=== PATIENT | male | born 1975 | race Hispanic/Latino ===

== ENCOUNTER 2023-04-16 19:53 | Emergency (ER) | payer BC ==
--- OUTSIDE RECORDS SUMMARY | 2023-04-16 19:58 | XMS REPORT | Continuity of Care Document ---
:1975 Author Organization [facility] t Address [address] [place] [address] [place] [id number] Care Team Providers Name Role Phone PCP, PATIENT DOES NOT HAVE A Primary Care Physician UnavailSherman Jefferson Attending Clinician Unavailable Dori Arciniega MD Attending Clinician Moses Wilson Attending Clinician Unavailable Brock Baker Attending Clinician Unavailable Kindra Rico Attending Clinician Unavailable DOMINIC PATIÑO Attending Clinician Unavailable Eliazar Bolaños MD Attending Clinician Moses Wilson Admitting Clinician Unavailable Payers Payer Name Policy Type Policy Number Effective Date Expiration Date S [facility] - [id number] 2018 00:00:00 OUT OF STATE Problems Condition Condition Condition Status Onset Resolution Last Treating Co mments Source Name Details Category Date Date Treatment Clinician Date Iron Iron Disease Active Overview: Univer s deficiency deficiency 3-03 Iron 32 i ty of 00:00: 06/11/2016 [place] [id number] Medical Branch Injury, Injury, Disease Active 2013- Univers other and other and 0-14 ity of unspecifie unspecifie 00:00: Jarett leos d, 00 Medical unspecifie unspecifie Br anch d site d site Closed Closed Disease Active 2013-06 Overview: Univer s fracture fracture 0-14 ICD10 ity of of of 00:00: Diagnosis [place] cervical cervical 00 Term Medica l vertebra vertebra 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 Injury at Injury at Disease Active 2013-06 Uni vers C5 level C5 level 0-14 ity of of of 00:00: [place] cervical cervical 00 Medica l spinal spinal Branch cord cord C6 C6 Disease Active 2013-06 Univers cervical cervical 0-14 [place]y of fracture, fracture, 00:[place] closed[place], 00 Medical initial initial Branch encounter encounter Nasal Nasal Disease Active 2013-06 Univers fracture, fracture, 0-14 ity of closed, closed, 00:00: [place] initial initial 00 Medical encounter encounter Bran ch Suicidal Suicidal Disease Active 2013-06 Unive rs ideation ideation 0-14 ity of 00:00: [place] 00 Medical Branch S/P S/P Disease Active 2013-06 Univers gastric gastric 0-14 ity of bypass bypass 00:00: [place] 00 Medical Branch Tobacco Tobacco Disease Active Univers use use 6-16 ity of disorder disorder 00:00: [place] 00 Medical Branch Alcohol Alcohol Disease Active Univers use use 1-06 ity of 00:00: [place] 00 Medical Branch Status Status Disease Active Univers post post 1-18 ity of gastric gastric 00:00: [place] bypass for bypass for 00 Me dical obesity obesity Branch Metabolic Metabolic Disease Active 2010-06 Uni vers syndrome syndrome 2-15 ity of 00:00: [place] 00 Medical Branch Morbid Morbid Disease Active Univers obesity obesity ity of [facility] Other Other Disease Active Univers chronic chronic ity of nonalcohol nonalcohol [place] ic liver ic liver Medica l disease disease Branch Allergies, Adverse Reactions, Alerts Allergy Allergy Status Severity Reaction(s) Onset Inactive Treating Comm ents Source Name Type Date Date Clinician No Known DA Active U 2012-06 [facility] Allergie 1-06 Clear s 00:00: [address] NO KNOWN Drug Active Univers ALLERGIE Class ity of S [facility] Social History Social Habit Start Date Stop Date Quantity Comments Source History of tobacco Cigarette Smoker [facility] Alcohol intake [facility] [place] [facility] Sexual orientation Method [facility] Tobacco Comment 2016-09-01 2016-09-01 Cut back from Univer sity of 00:00:00 00:00:00 1/2 pack per [place] Medica l week to once a Branch week / 20 yrs Alcohol Comment 2011-12-08 2011-12-0812/2011 - once Univer sity of 00:00:00 00:00:00 week - [address] [facility] jean-claude or drinks ( [place] on rocks ( 1-2 ounce) Sex Assigned At [birth year] [facility] 00:00:00 [facility]:00:00 Hospital Smoking Status Start Date Stop Date Source Tobacco smoking consumption Meth [facility] unknown Current every day smoker 2018-12-29 00:00:00 [facility] versity [facility] Medications Ordered Filled Start Stop Current Ordering Indication Dosage Frequency Signature Comments Components Source Medication Medication Date Date Medication? Clinician (SIG) Name Name Multivit-Ir Yes 2{tbl} Take 2 Un elana on-Min-Foli 7-25 Tabs by ity o f c Acid 14:46: mouth [place] (CENTRUM) 58 daily. Medical 3,0. Branch 4 unit-mg-mg Chew Multivit-Ir Yes 2{tbl} Take 2 Un elana on-Min-Foli 7-25 Tabs by ity o f c Acid 14:46: mouth [place] (CENTRUM) 58 daily. Medical 3,0. Branch 4 unit-mg-mg Chew Multivit-Ir Yes 2{tbl} Take 2 Un elana on-Min-Foli 7-25 Tabs by ity o f c Acid 14:46: mouth [place] (CENTRUM) 58 daily. Medical 3,0. Branch 4 unit-mg-mg Chew Multivit-Ir Yes 2{tbl} Take 2 Un elana on-Min-Foli 7-25 Tabs by ity o f c Acid 14:46: mouth [place] (CENTRUM) 58 daily. Medical 3,. Branch 4 unit-mg-mg Chew Multivit-Ir Yes 2{tbl} Take 2 Un elana on-Min-Foli 7-25 Tabs by ity o f c Acid 14:46: mouth [place] (CENTRUM) 58 daily. Medical 3,0. Branch 4 unit-mg-mg Chew Multivit-Ir Yes 2{tbl} Take 2 Un elana on-Min-Foli 7-25 Tabs by ity o f c Acid 14:46: mouth [place] (CENTRUM) 58 daily. Medical 3,50018-0. Branch 4 unit-mg-mg Chew Multivit-Ir 2018- Yes 2{tbl} Take 2 Un elana on-Min-Foli 7-25 Tabs by ity o f c Acid 14:46: mouth [place] (CENTRUM) 58 daily. Medical 3,18-0. Branch 4 unit-mg-mg Chew methylPREDN 2019- No [id number] Take by Univers ISolone 4 09-14-25 mouth ity of mg tablets 00:00: 00:00 SEE-INSTRU [place] 00 :00 CTIONS. Medical follow Branch package directions azithromyci 2019- No [id number] 250mg Take 1 Univers n 250 mg 09-14 tablet by ity o f tablet 00:00: 00:00 mouth [place] 00 :00 SEE-INSTRU Medical CTIONS. Branch Take 500 mg day 1, then 250 mg days 2 to 5. methylPREDN 2019- No [id number] Take by [place] ISolone 4 09-1425 mouth ity of mg tablets 00:00: 00:00 SEE-INSTRU [place] 00 :00 CTIONS. Medical follow Branch package directions azithromyci 2019- No [id number] 250mg Take 1 Univers n 250 mg 09-14 tablet by ity o f tablet 00:00: 00:00 mouth [place] 00 :00 SEE-INSTRU Medical CTIONS. Branch Take 500 mg day 1, then 250 mg days 2 to 5. methylPREDN 2019- No [id number] Take by [place] ISolone 4 09-14-25 mouth ity of mg tablets 00:00: 00:00 SEE-INSTRU [place] 00 :00 CTIONS. Medical follow Branch package directions azithromyci 2019- No [id number] 250mg Take 1 Univers n 250 mg 4-25 tablet by ity o f tablet 00:00: 00:00 mouth [place] 00 :00 SEE-INSTRU Medical CTIONS. Branch Take 500 mg day 1, then 250 mg days 2 to 5. methylPREDN 2019- No Take by Un elana ISolone 6-16 07-25 mouth ity of (MEDROL, 00:00: 00:00 SEE-INSTRU [place] CAIN,) 4 mg 00 :00 CTIONS. Medica l tablets follow Branch package directions albuterol 2019- No 2{puff} Inhale 2 Univers 90 - 07-25 Puffs ity of mcg/actuati 00:00: 00:00 every 6 [place] inhaler 00 :00 (six) Medical hours as Branch needed for Wheezing or Shortness of Breath. bromphenira 2019- No 10mL Take 10 mL Univers mine-pseudo 11-2025 by mouth ity of ephedrine-D 00:00: 00:00 at bedtime [place] M (BROMFED 00 :00 as needed Medi jean-claude DM) 2-30-10 for Branch mg/5 mL Congestion syrup /Allergies . azithromyci 2018- No 250mg Take 1 Un elana n 250 mg 11-20 tablet by ity o f tablet 00:00: 00:00 mouth [place] 00 :00 SEE-INSTRU Medical CTIONS. Branch Take 500 mg day 1, then 250 mg days 2 to 5. methylPREDN 2018- No Take by Un elana ISolone 11-2025 mouth ity of (MEDROL, 00:00: 00:00 SEE-INSTRU [place] CAIN,) 4 mg 00 :00 CTIONS. Medica l tablets follow Branch package directions albuterol 2018- No 2{puff} Inhale 2 Univers 90 11-20 07-25 Puffs ity of mcg/actuati 00:00: 00:00 every 6 [place] inhaler 00 :00 (six) Medical hours as Branch needed for Wheezing or Shortness of Breath. bromphenira 2019- No 10mL Take 10 mL Univers mine-pseudo 11-2025 by mouth ity of ephedrine-D 00:00: 00:00 at bedtime [place] M (BROMFED 00 :00 as needed Medi jean-claude DM) 2-30-10 for Branch mg/5 mL Congestion syrup /Allergies . azithromyci 2019- No 250mg Take 1 Un elana n 250 mg 11-2025 tablet by ity o f tablet 00:00: 00:00 mouth [place] 00 :00 SEE-INSTRU Medical CTIONS. Branch Take 500 mg day 1, then 250 mg days 2 to 5. methylPREDN 2018- No Take by Un elana ISolone 11-20 mouth ity of (MEDROL, 00:00: 00:00 SEE-INSTRU [place] CAIN,) 4 mg 00 :00 CTIONS. Medica l tablets follow Branch package directions albuterol 2018- No 2{puff} Inhale 2 Univers 90 11-20 Puffs ity of mcg/actuati 00:00: 00:00 every 6 [place] inhaler 00 :00 (six) Medical hours as Branch needed for Wheezing or Shortness of Breath. bromphenira 2018- No 10mL Take 10 mL Univers mine-pseudo 11-20 by mouth ity of ephedrine-D 00:00: 00:00 at bedtime [place] M (BROMFED 00 :00 as needed Medi jean-claude DM) 2-30-10 for Branch mg/5 mL Congestion syrup /Allergies . azithromyci 2018- No 250mg Take 1 Un elana n 250 mg 11-20 tablet by ity o f tablet 00:00: 00:00 mouth [place] 00 :00 SEE-INSTRU Medical CTIONS. Branch Take 500 mg day 1, then 250 mg days 2 to 5. Cholecalcif 2019- No [id number] 2000U Take 1 Univers joyce, 08-0725 tablet by ity of Vitamin D3, 00:00: 00:00 [place] (VITAMIN 00 :00 daily. Medical D3) 2,000 Branch unit tablet SERTraline 2019- No [id number] 50mg Take 1 Univers (ZOLOFT) 50 08-0725 tablet by it y of mg tablet 00:00: 00:00 mouth [place] 00 :00 daily. Medical Branch Cholecalcif 2019- No [id number] 2000U Take 1 Univers joyce, -08 11-25 tablet by ity of Vitamin D3, 00:00: 00:00 [place] (VITAMIN 00 :00 daily. Medical D3) 2,000 Branch unit tablet SERTraline 2018- No [id number] 50mg Take 1 Univers (ZOLOFT) 50 08-07-25 tablet by it y of mg tablet 00:00: 00:00 mouth [place] 00 :00 daily. Medical Branch Cholecalcif 2019- No [id number] 2000U Take 1 Univers joyce, 08-07-25 tablet by ity of Vitamin D3, 00:00: 00:00 [place] (VITAMIN 00 :00 daily. Medical D3) 2,000 Branch unit tablet SERTraline 2019- No [id number] 50mg Take 1 Univers (ZOLOFT) 50 08-07-25 tablet by it y of mg tablet 00:00: 00:00 mouth [place] 00 :00 daily. Medical Branch clonazePAM 2019- No [id number] .5mg Take 1 Univers 0.5 mg 2-03 13-25 tablet by ity of tablet 00:00: 00:00 mouth at [place] 00 :00 bedtime. Medical Branch clonazePAM 2019- No [id number] .5mg Take 1 Univers 0.5 mg 2-25 tablet by ity of tablet 00:00: 00:00 mouth at [place] 00 :00 bedtime. Medical Branch clonazePAM 2019- No [id number] .5mg Take 1 Univers 0.5 mg 2-03 13-25 tablet by ity of tablet 00:00: 00:00 mouth at [place] 00 :00 bedtime. [facility] Branch Immunizations Ordered Filled Date Status Comments Source Immunization Name Immunization Name Moderna COVID-19 Moderna COVID-19 2020-11-14 Completed Vaccine Vaccine 00:00:00 Moderna COVID-19 Moderna COVID-19 2020-10-09 Completed Vaccine Vaccine 00:00:00 Influenza Virus 2016-03-07 Completed Universit y of Vaccine 00:00:00 [facility] Influenza Virus 2016-03-07 Completed Universit y of Vaccine 00:00:00 [facility] Influenza Virus 2016-03-07 Completed Universit y of Vaccine 00:00:00 [facility] Influenza Virus 2016-03-07 Completed Universit y of Vaccine 00:00:00 [facility] Influenza Virus 2016-03-07 Completed Universit y of Vaccine 00:00:00 [facility] Influenza Virus 2016-03-07 Completed Universit y of Vaccine 00:00:00 [facility] Influenza Virus 2016-03-07 Completed Universit y of Vaccine 00:00:00 [facility] Influenza Virus 2015-03-07 Completed Universit y of Vaccine 00:00:00 [facility] Influenza Virus 2015-03-07 Completed Universit y of Vaccine 00:00:00 [facility] Influenza Virus 2015-03-07 Completed Universit y of Vaccine 00:00:00 [facility] Influenza Virus 2015-03-07 Completed Universit y of Vaccine 00:00:00 [facility] Influenza Virus 2015-03-07 Completed Universit y of Vaccine 00:00:00 [facility] Influenza Virus 2015-03-07 Completed Universit y of Vaccine 00:00:00 [facility] Influenza Virus 2015-03-07 Completed Universit y of Vaccine 00:00:00 [facility] Pneumococcal 2014-03-27 Completed University o f Polysaccharide, 00:00:00 [place] Med ical PPSV23 (PNEUMOVAX) Branch Pneumococcal 2014-03-27 Completed University o f Polysaccharide, 00:00:00 [place] Med ical PPSV23 (PNEUMOVAX) Branch Pneumococcal 2014-03-27 Completed University o f Polysaccharide, 00:00:00 [place] Med ical PPSV23 (PNEUMOVAX) Branch Pneumococcal 2014-03-27 Completed University o f Polysaccharide, 00:00:00 [place] Med ical PPSV23 (PNEUMOVAX) Branch Pneumococcal 2014-03-27 Completed University o f Polysaccharide, 00:00:00 [place] Med ical PPSV23 (PNEUMOVAX) Branch Pneumococcal 2014-03-27 Completed University o f Polysaccharide, 00:00:00 [place] Med ical PPSV23 (PNEUMOVAX) Branch Pneumococcal 2014-03-27 Completed University o f Polysaccharide, 00:00:00 [place] Med ical PPSV23 (PNEUMOVAX) Branch Influenza Virus 2010-03-07 Completed Universit y of Vaccine 00:00:00 [facility] Influenza Virus 2010-03-07 Completed Universit y of Vaccine 00:00:00 [facility] Influenza Virus 2010-03-07 Completed Universit y of Vaccine 00:00:00 [facility] Influenza Virus 2010-03-07 Completed Universit y of Vaccine 00:00:00 [facility] Influenza Virus 2010-03-07 Completed Universit y of Vaccine 00:00:00 [facility] Influenza Virus 2010-03-07 Completed Universit y of Vaccine 00:00:00 [facility] Influenza Virus 2010-03-07 Completed Universit y of Vaccine 00:00:00 [facility] FLUCELVAX QUAD PF Unknown Completed [facility] Vital Signs Vital Name Observation Time Observation Value Comments Source Systolic blood 2018-12-29 14:47:00 110 mm[Hg] Univer sity of pressure [place] [facility] Diastolic blood 2018-12-29 14:47:00 70 mm[Hg] Unive rsity of pressure [facility] Branch Heart rate 2018-12-29 14:47:00 94 /min Universi ty of [place] [facility] Respiratory rate 2018-12-29 14:47:00 18 /min Univ ersity of [place] [facility] Body height 2018-12-29 14:47:00 177.8 cm Universi ty of [place] [facility] Body weight 2018-12-29 14:47:00 113.127 kg Universi ty of [place] [facility] BMI 2018-12-29 14:47:00 35.79 kg/m2 Universi ty of [place] [facility] Oxygen saturation in 2018-12-29 14:47:00 94 /min University of Arterial blood by [facility] [place] Pulse oximetry Branch Systolic blood 2018-12-29 14:47:00 110 mm[Hg] Univer sity of pressure [place] [facility] Diastolic blood 2018-12-29 14:47:00 70 mm[Hg] Unive rsity of pressure [place] [facility] Heart rate 2018-12-29 14:47:00 94 /min Universi ty of [place] [facility] Respiratory rate 2018-12-29 14:47:00 18 /min Univ ersity of [facility] Body height 2018-12-29 14:47:00 177.8 cm Universi ty of [place] [facility] Body weight 2018-12-29 14:47:00 113.127 kg Universi ty of [place] [facility] BMI 2018-12-29 14:47:00 35.79 kg/m2 Universi ty of [place] [facility] Oxygen saturation in 2018-12-29 14:47:00 94 /min University of Arterial blood by [facility] [place] Pulse oximetry Branch Procedures Procedure Date / Time Performing Clinician Source Performed URINALYSIS 2018-12-29 16:10:00 [facility] GLYCOSYLATED HEMOGLOBIN 2018-12-29 16:06:00 [facility] Eliazar [facility] (A1C) Medical Branch SEDIMENTATION RATE 2018-12-29 16:06:00 Eliazar Bolaños [facility] CBC WITH DIFFERENTIAL 2018-12-29 16:06:00 Eliazar Bolaños [facility] HEPATITIS B SURFACE 2018-12-29 16:05:00 Eliazar Bolaños [facility] ANTIBODY [facility] Branch HEPATITIS B SURFACE 2018-12-29 16:05:00 Eliazar Bolaños [facility] ANTIGEN [facility] HCV ANTIBODY 2018-12-29 16:05:00 Eliazar Bolaños [place] [facility] HBC ANTIBODY (IGM & IGG) 2018-12-29 16:05:00 Eliazar Bolaños [facility] COMP. METABOLIC PANEL 2018-12-29 16:05:00 Eliazar Bolaños [facility] ([id number]) Medical [place] LIPID PANEL 2018-12-29 16:05:00 Eliazar Bolaños [facility] ([id number])(TOTAL Medical Branch CHOLESTEROL, TRIGLYCERIDES, HDL) XR CHEST 2 VW 2018-12-29 15:54:59 Eliazar Bolaños [facility] XR SPINE THORACIC 3 VW 2018-12-29 15:54:14 Eliazar Bolaños [facility] Plan of Care Planned Activity Planned Date Details Comments Source Future Scheduled 2023-04-09 [facility] Test 01:50:16 malignant neoplasm of colon (procedure) [code = 488848025] Future Scheduled 2023-04-09 [facility] for [facility] Test 01:50:16 malignant neoplasm of colon (procedure) [code = 959828228] Future Scheduled 2023-04-09 COVID-19 VACCINE (3 [facility] Test 01:50:16 - season) [code = COVID-19 VACCINE (3 - season)] Future Scheduled 2023-04-09 [facility] Test 01:50:16 malignant neoplasm of colon (procedure) [code = 133101911] Future Scheduled 2023-04-09 [facility] Test 01:50:16 malignant neoplasm of colon (procedure) [code = 477077570] Future Scheduled 2023-04-09 [facility] Test 01:50:16 malignant neoplasm of colon (procedure) [code = 046811515] Encounters Start End Encounter Admission Attending Care Care Encounter Source Date/Time Date/Time Type Type Clinicians Facility Department ID 2023-03-[address] [id number] 09:20:01 [place] [id number] [facility] 2022-03-05 Outpatient CHW KADE [id number] [facility] 14:19:15 0519 [facility] 2023-04-08 2023-04-08 Clinical Alma Rosa, [id number] Methodi 10:35:00 10:40:00 Support Dori [id number] [id number] Hospit a .[id number] l .8 2023-04-08 2023-04-08 Outpatient ALMA ROSA [facility] [id number] [place] 00:00:00 00:00:[address] 2022-09-16 2022-09-18 Inpatient [facility], [facility] MEDI.01 [id number] [facility] 05:53:00 12:26:[address] 2021-02-15 2021-02-15 Outpatient KADE Baker [facility] [id number] [facility] 08:00:00 08:00:00 [facility] 2020-12-16 2020-12-16 Outpatient KADE Rico [id number] [facility] 10:00:00 10:00:00 [facility] 2020-12-13 2020-12-13 Outpatient KADE Rico CHW [id number] [facility] 13:00:00 13:00:00 [facility] s 2020-11-14 2020-11-14 Outpatient Riley PATIÑO [facility] [id number] Univers 15:30:00 15:30:00 DOMINIC porter [facility] [place] [facility] 2020-11-14 2020-11-14 Outpatient GCCOVIDV GCCOVID[facility] [id number] [facility] 00:00:00 00:00:00 V 2020 2020 Outpatient Riley PATIÑO [facility] [id number] Univers 14:20:00 14:20:00 DOMINIC porter [facility] [place] [facility] 2020-10-09 2020-10-09 Outpatient R HAROON [facility] [id number] Univers 14:30:00 14:30:00 DOMINIC porter [facility] [place] [facility] 2020-10-09 2020-10-09 Outpatient GCCOVIDV GCCOVIDV [id number] [facility] 00:00:00 00:00:00 V 2018-12-29 2019-01-02 Office [facility] [id number] [facility] 09:27:17 08:37:16 Visit Eliazar HEALTH [id number] it y of [place] 4.2.7.2.686 [facility] [id number] Medi jean-claude Primary & 231 Branch Specialty Care 2018-12-29 2019-01-02 Office [facility] [id number] 09:27:17 08:37:16 Visit Eliazar HEALTH [id number] [place] 4.2.7.2.68[facility] [id number] Primary & 231 Specialty Care 2018-12-30 2018-12-30 Abstract [facility] [id number] Univers 00:00:00 00:00:00 Eliazar HEALTH [id number] it y of [place] 4.2.7.2.686 [facility] [id number] Medi jena-claude Primary & 231 Branch Specialty Care 2018-12-30 2018-12-30 [facility] [id number] Univers 00:00:00 00:00:00 Eliazar HEALTH [id number] it y of [place] 4.2.7.2.686 [facility] [id number] Medi jean-claude Primary & 231 Branch Specialty Care 2018-12-29 2018-12-29 [facility] [id number] Univers 10:37:32 23:59:00 Encounter Eliazar HEALTH [id number] ity of [place] 4.2.7.2.686 [facility] [id number] Medi jean-claude Primary & 809 Branch Specialty Care 2018-12-29 2018-12-29 [facility] [id number] Univers 10:35:00 10:36:00 Encounter [facility] [id number] it of [place] 4.2.7.2.686 Chel [facility] [id number] [facility] Primary & 809 Branch Specialty Care Results Test Description Test Time Test Comments Results Result Comments Source BASIC METABOLIC PANEL 2022-09-18 08:49:00 Test Item Value Reference Range Interpretation Comme nts SODIUM (test code = NA) 138 mEq/L 134-147 N POTASSIUM (test code = K) 4.0 mEq/L 3.4-5.0 N CHLORIDE (test code = CL) 108 mEq/L 100-108 N CARBON DIOXIDE (test code = 25 mEq/l 21-33 N CO2) ANION GAP (test code = GAP) 9 0-20 N GLUCOSE (test code = GLU) 121 mg/dL 70-110 H BLOOD UREA NITROGEN (test code 10 mg/dL 7-18 = BUN) GLOMERULAR FILTRATION RATE 109.2 95-105 H T he Glomerular Filtration Rate is (test code = GFR) a calculat ed parameterbased on serum Creatinin e, patient age and sex. GFR values less than 60 mL/min/1.73 squ are meters are indicative ofCh ronic Kidney Disease. Values less than 15 mL/min/1.73squa re meters indicate Kidney failure. The calculation forGFR is based on the CKD-EPI (2020) calculat ion. This formulais race indifferen t and is the recommended for tobi for GFRby the National Kidney Foundation for Adults.The GFR will not calculate if the sex is u nknown or if thepatient's ag e is <18 years. CREATININE (test code = CREAT) 0.8 mg/dL 0.6-1.3 N CALCIUM (test code = CA) 9.1 mg/dL 8.0-10.5 N [id number] 15:29:00 Test Item Value Reference Range Interpretation Comments ACT-ISTAT (test code 323 SEC 74-137 H Perform ed by certified = ACTI) linderman operator at [facility] [id number] 14:38:00 Test Item Value Reference Range Interpretation Comments ACT-ISTAT (test code 347 SEC 74-137 H Perform ed by certified = ACTI) linderman operator at [facility] BASIC METABOLIC [id number] 09:06:00 Test Item Value Reference Range Interpretation Comments SODIUM (test code = 139 mEq/L 134-147 N NA) POTASSIUM (test code 3.8 mEq/L 3.4-5.0 N = K) CHLORIDE (test code 109 mEq/L 100-108 H = CL) CARBON DIOXIDE (test 25 mEq/l 21-33 N code = CO2) ANION GAP (test code 9 0-20 N = GAP) GLUCOSE (test code = 107 mg/dL 70-110 GLU) BLOOD UREA NITROGEN 14 mg/dL 7-18 (test code = BUN) GLOMERULAR 105.4 95-105 H The Glomerular FILTRATION RATE Filtration R ate is a (test code = GFR) calculated parameterbased on serum Creatinine, pat ient age and sex. GFR va luesless than 60 mL/min/ 1.73 square meters a re indicative ofCh ronic Kidney Disease. Values less than 15 mL/min/1.73squa re meters indicate Kidney failure. The calculation forGFR is based on the CKD-EPI (2020) calculat ion. This formulais race indifferent and is the recommended for tobi for GFRby the [facility] Kidney Foundati on for Adults.The GFR will not calculate if th e sex is unknown or if thepatient's ag e is <18 years. CREATININE (test 0.9 mg/dL 0.6-1.3 N code = CREAT) CALCIUM (test code = 9.0 mg/dL 8.0-10.5 N CA) CBC W/AUTO [id number] 07:46:00 Test Item Value Reference Range Interpretation Comments WHITE BLOOD CELL (test code = 10.0 x10 3/uL 4.5-11.0 N WBC) RED BLOOD CELL (test code = 4.39 x10 6/uL 4.00-5.60 N RBC) HEMOGLOBIN (test code = HGB) 11.9 g/dL 12.5-16.9 L HEMATOCRIT (test code = HCT) 37.5 % 37.5-50.7 N MEAN CELL VOLUME (test code = 85.4 fL 81.0-99.0 N MCV) MEAN CELL HGB (test code = MCH) 27.1 pg 27.0-33.0 N MEAN CELL HGB CONCETRATION 31.7 g/dL 33.0-37.0 L (test code = MCHC) RED CELL DISTRIBUTION WIDTH CV 14.8 % 11.5-14.5 H (test code = RDW) RED CELL DISTRIBUTION WIDTH SD 46.5 fL 37.0-54.0 N (test code = RDW-SD) PLATELET COUNT (test code = 290 x10 3/uL 150-400 N PLT) MEAN PLATELET VOLUME (test code 10.7 fL 7.0-9.0 H = MPV) NEUTROPHIL % (test code = NT%) 54.3 % 56.0-77.0 L IMMATURE GRANULOCYTE % (test 0.7 % 0.0-2.0 N code = IG%) LYMPHOCYTE % (test code = LY%) 30.0 % 14.0-32.0 N MONOCYTE % (test code = MO%) 11.2 % 4.8-9.0 H EOSINOPHIL % (test code = EO%) 3.1 % 0.3-3.7 N BASOPHIL % (test code = BA%) 0.7 % 0.0-2.0 N NUCLEATED RBC % (test code = 0.0 % 0-0 N NRBC%) NEUTROPHIL # (test code = NT#) 5.46 x10 3/uL 2.0-7.6 N IMMATURE GRANULOCYTE # (test 0.07 x10 3/uL 0.00-0.03 H code = IG#) LYMPHOCYTE # (test code = LY#) 3.01 x10 3/uL 1.0-3.8 N MONOCYTE # (test code = MO#) 1.12 x10 3/uL 0.1-0.8 H EOSINOPHIL # (test code = EO#) 0.31 x10 3/uL 0.0-0.2 H BASOPHIL # (test code = BA#) 0.07 x10 3/uL 0.0-0.2 N NUCLEATED RBC # (test code = 0.00 x10 3/uL 0.0-0.1 N NRBC#) MANUAL DIFF REQUIRED (test code NO = MDIFF) BASIC METABOLIC [id number] 14:13:00 Test Item Value Reference Range Interpretation Comments SODIUM (test code = 138 mEq/L 134-147 N NA) POTASSIUM (test code 3.8 mEq/L 3.4-5.0 N = K) CHLORIDE (test code 106 mEq/L 100-108 N = CL) CARBON DIOXIDE (test 27 mEq/l 21-33 N code = CO2) ANION GAP (test code 9 0-20 N = GAP) GLUCOSE (test code = 145 mg/dL 70-110 H GLU) BLOOD UREA NITROGEN 11 mg/dL 7-18 N (test code = BUN) GLOMERULAR 92.8 95-105 L The Glomerular FILTRATION RATE Filtration R ate is a (test code = GFR) calculated parameterbased on serum Creatinine, pat ient age and sex. GFR va luesless than 60 mL/min/ 1.73 square meters a re indicative ofCh ronic Kidney Disease. Values less than 15 mL/min/1.73squa re meters indicate Kidney failure. The calculation forGFR is based on the CKD-EPI (2020) calculat ion. This formulais race indifferent and is the recommended for tobi for GFRby the Natio nal Kidney Foundati on for Adults.The GFR will not calculate if th e sex is unknown or if thepatient's ag e is <18 years. CREATININE (test 1.0 mg/dL 0.6-1.3 N code = CREAT) CALCIUM (test code = 9.3 mg/dL 8.0-10.5 N CA) PROTHROMBIN [id number] 14:01:00 Test Item Value Reference Range Interpretation Comments PROTHROMBIN TIME 11.1 SECONDS 9.3-12.9 N PATIENT (test code = PTP) INTERNATIONAL NORMAL 1.0 0.8-1.2 N TARGET INR BY RATIO (test code = INDICATIO N Indication INR) INR1. Prophylax is of venous thrombos is 2.0 - 3.0 (orthoped ic surgery), Proph ylaxis of venous throm bosis (other than hig h-risk surgery), Treat ment of Deep Vein Thrombosis/Pulm onary Embolism, Preve ntion of systemic emb olism - Tissue heart va lves, Acute Myocardia l Infarction (to prevent systemic emboli sm), Valvular heart disease, Atrial Fibrillation, Bileaflet mecha nical valve in aortic position.2. Mec hanical prosthetic valv es (high risk), 2. 5 - 3.5 Presence of Lup us Anticoagulant o r Antiphospholipi d Antibodies, Pre vention of systemic emb olism - Acute Myocardia l Infarction (to prevent recurrent infar ct). CBC W/AUTO [id number] 13:52:00 Test Item Value Reference Range Interpretation Comments WHITE BLOOD CELL (test code = 11.2 x10 3/uL 4.5-11.0 H WBC) RED BLOOD CELL (test code = 4.73 x10 6/uL 4.00-5.60 N RBC) HEMOGLOBIN (test code = HGB) 12.9 g/dL 12.5-16.9 N HEMATOCRIT (test code = HCT) 41.2 % 37.5-50.7 N MEAN CELL VOLUME (test code = 87.1 fL 81.0-99.0 N MCV) MEAN CELL HGB (test code = MCH) 27.3 pg 27.0-33.0 N MEAN CELL HGB CONCETRATION 31.3 g/dL 33.0-37.0 L (test code = MCHC) RED CELL DISTRIBUTION WIDTH CV 15.2 % 11.5-14.5 H (test code = RDW) RED CELL DISTRIBUTION WIDTH SD 48.0 fL 37.0-54.0 N (test code = RDW-SD) PLATELET COUNT (test code = 293 x10 3/uL 150-400 N PLT) MEAN PLATELET VOLUME (test code 10.6 fL 7.0-9.0 H = MPV) NEUTROPHIL % (test code = NT%) 65.9 % 56.0-77.0 N IMMATURE GRANULOCYTE % (test 0.9 % 0.0-2.0 N code = IG%) LYMPHOCYTE % (test code = LY%) 20.4 % 14.0-32.0 N MONOCYTE % (test code = MO%) 9.8 % 4.8-9.0 H EOSINOPHIL % (test code = EO%) 2.6 % 0.3-3.7 N BASOPHIL % (test code = BA%) 0.4 % 0.0-2.0 N NUCLEATED RBC % (test code = 0.0 % 0-0 N NRBC%) NEUTROPHIL # (test code = NT#) 7.35 x10 3/uL 2.0-7.6 N IMMATURE GRANULOCYTE # (test 0.10 x10 3/uL 0.00-0.03 H code = IG#) LYMPHOCYTE # (test code = LY#) 2.28 x10 3/uL 1.0-3.8 N MONOCYTE # (test code = MO#) 1.10 x10 3/uL 0.1-0.8 H EOSINOPHIL # (test code = EO#) 0.29 x10 3/uL 0.0-0.2 H BASOPHIL # (test code = BA#) 0.05 x10 3/uL 0.0-0.2 N NUCLEATED RBC # (test code = 0.00 x10 3/uL 0.0-0.1 N NRBC#) MANUAL DIFF REQUIRED (test code NO = MDIFF) - XR CHEST 2 [id number] 00:00:00 [facility] : 1975 Sex: M FAX: NuñezZenaida [phone] [place]: St: PRE FAX: Gustavo Downing MD [phone] --------- Name: NARANJOEDER [facility] : 1975 Age/S: 46/M [address] [place] [address] Unit #: [id number] Loc: [place] [address] Phys: Gustavo Fleming MD Acct: [id number] Dis Date: Status: PRE [facility] PHONE #: [phone] Exam Date: 09/15/2022 1410 FAX #: [phone] Reason: PRE OP EXAMS: CPT CODE: [id number] XR CHEST 2 V [id number] PROCEDURE INFORMATION: Exam: XR Chest Exam date and time: 09/15/2022 1:58 PM Age: 46 years old Clinical indication: Other: Pre op TECHNIQUE: Imaging protocol: Radiologic exam of the chest. Views: 2views. PA and Lateral COMPARISON: No relevant prior studies available. FINDINGS: Lungs: The lungs are clear. Pleural spaces: Unremarkable. No pleural effusion. No pneumothorax. Heart/Mediastinum: The heart size is normal. The pulmonary vasculature is normal. The mediastinal contour is normal. The trachea is midline. Bones/joints: No acute abnormality seen. Metallic plate noted in the lower cervical spine. IMPRESSION: No acute cardiopulmonary findings at 3562 Reported and signed by: Sebastian Giron M.D. CC: Zenaida Nuñez; Gustavo Fleming MD Technologist: RT Susana(R) Trnscrd Date/Time/By: 09/15/2022 (2092) : By: [email or web address] Orig Print D/T: S: 09/15/2022 (7269) PAGE 1 Signed ReportGLYCOSYLATED HEMOGLOBIN (A1C)2018-12-30 13:33:00 Test Item Value Reference Range Interpretation Comments HGB A1C (test code = 4548-4) 6.0 % 4-6 Lab Interpretation (test code = Normal 19565-3) [facility] [id number] 13:07:00 Test Item Value Reference Range Interpretation Comments HCV Semi-Quantitative (test code = 51587-1) [facility]AT[facility] SURFACE [id number] 13:07:00 Test Item Value Reference Range Interpretation Comments HBsAB (test code = Negative 1210737102) HBsAb mIU/mL Semi-Quantitative (test code = 4880861255) HUONG (test code = Interpretation:?Hepatitis HUONG) B Surface Antibody? ? Negative - Patient is considered to be not immune to infection with HBV.? Positive - Anti-HBs detected at greater than or equal to 12 mIU/mL.?Patient is considered to be immune to infection with HBV.? [facility] ANTIBODY (IGM & IGG)2018-12-30 12:58:00 Test Item Value Reference Range Interpretation Comments HBC (test code = 4783695910) Negative HBC Semi-Quantitative (test code = 0144078790) [facility] SUR[facility] [id number] 12:21:00 Test Item Value Reference Range Interpretation Comments HBsAg Semi-Quantitative (test code = 5195-3) [facility]SEMENTATION [id number] 22:41:00 Test Item Value Reference Range Interpretation Comments ESR (test code = See_Comment H [Automated message] 1238511413) The system [employer] generated this result transmitted ref erence range: 0 - 10 m m/HR. The reference r rubens was not used to interpret this result as normal/abnor mal. Lab Interpretation (test Abnormal code = 98517-1) [facility] [id number] 22:41:00 Test Item Value Reference Range Interpretation Comments ESR (test code = See_Comment H [Automated message] 4691690304) The system [employer] generated this result transmitted ref erence range: 0 - 10 m m/HR. The reference r rubens was not used to interpret this result as normal/abnor mal. Lab Interpretation (test Abnormal code = 36447-1) [facility] [id number] 22:41:00 Test Item Value Reference Range Interpretation Comments ESR (test code = See_Comment H [Automated message] 1564835855) The system [employer] generated this result transmitted ref erence range: 0 - 10 m m/HR. The reference r rubens was not used to interpret this result as normal/abnor mal. Lab Interpretation (test Abnormal code = 15639-4) [facility]COM. METABOLIC PANEL (45259)2018-12-29 21:43:00 Test Item Value Reference Range Interpretation Comments NA (test code = 138 mmol/L 135-145 5112246333) K (test code = 4.3 mmol/L 3.5-5 4924842840) CL (test code = 99 mmol/L 98-108 5596626512) CO2 TOTAL (test code = 23 mmol/L 23-31 7929329795) AGAP (test code = 2-16 7556338963) BUN (test code = 4 mg/dL 7-23 L 6939274312) GLUCOSE (test code = 142 mg/dL 70-110 H 4744042240) CREATININE (test code = 0.84 mg/dL 0.6-1.25 3953210397) TOTAL BILI (test code = 0.5 mg/dL 0.1-1.4 7120567340) CALCIUM (test code = 9.4 mg/dL 8.6-10.6 5913244985) T PROTEIN (test code = 8.2 g/dL 6.3-8.2 5344523725) ALBUMIN (test code = 4.6 g/dL 3.5-5 5019632280) ALK PHOS (test code = 68 U/L 34-122 5523144924) ALT(SGPT) (test code = 139 U/L 9-51 H 4235533712) AST(SGOT) (test code = 221 U/L 13-40 H 9783658306) eGFR Calculation mL/min/1.73m2 (Non-) (test code = 2306348994) eGFR Calculation mL/min/1.73m2 () (test code = 2753764809) HUONG (test code = HUONG) Association of Glomerular Filtration Rate (GFR) and Staging of Kidney Disease*+ + + +| GFR (mL/min/1.73 m2)?| With Kidney Damage?|?Without Kidney Damage+ --------+ --------+ +|?>90?|?S tage one?|? Normal?+ ---------+ ---------+ +|?60-89? |?Stage two?|? Decreased GFR? + --+ --+ ------+|?30-59?|?Stage three?|? Stage three? + --+ --+ ------+|?15-29?|?Stage four? |? Stage four?+ -------+ -------+ +|?<15 (or dialysis)?|?Stage five? |? Stage five?+ -------+ -------+ +*Each stage assumes the associated GFR level has been in effect for at least three months.?Stages 1 to 5, with or without kidney disease, indicate chronic kidney disease.Notes: Determination of stages one and two (with eGFR >59mL/min/1.73 m2) requires estimation of kidney damage for at least three months as defined by structural or functional abnormalities of the kidney, manifested by either:Pathological abnormalities or Markers of kidney damage (including abnormalities in the composition of the blood or urine or abnormalities in imaging tests). Lab Interpretation Abnormal (test code = 81141-4) [facility] HospitalLIPID PANEL (28584)(TOTAL CHOLESTEROL, TRIGLYCERIDES, HDL)2018-12-29 21:43:00 Test Item Value Reference Range Interpretation Comments CHOL (test code = 189 mg/dL 120-200 4355993931) HDL (test code = 51 mg/dL >40 1355065954) HDLC RATIO (test code = See_Comment [Au tomated message] 5965424275) The system [employer] generated this result transmit magali reference range : <=5.0. The refe rence range was not u sed to interpret th is result as normal/abnormal . TRIG (test code = 132 mg/dL 30-170 8636769629) LDL CHOL (test code = 112 mg/dL See_Comment [Auto mated message] 41165-1) The system [employer] generated this result transmit magali reference range : <=160. The refe rence range was not u sed to interpret th is result as normal/abnormal . VLDL (test code = 26 mg/dL 5-60 5341998824) Lab Interpretation (test Normal code = 26127-3) [facility] HospitalCOMP. METABOLIC PANEL (01592)2018-12-29 21:43:00 Test Item Value Reference Range Interpretation Comments NA (test code = 138 mmol/L 135-145 5357362318) K (test code = 4.3 mmol/L 3.5-5 7076871229) CL (test code = 99 mmol/L 98-108 5500505835) CO2 TOTAL (test code = 23 mmol/L 23-31 9998809487) AGAP (test code = 2-16 6251985458) BUN (test code = 4 mg/dL 7-23 L 6750347015) GLUCOSE (test code = 142 mg/dL 70-110 H 0991538276) CREATININE (test code = 0.84 mg/dL 0.6-1.25 6656129023) TOTAL BILI (test code = 0.5 mg/dL 0.1-1.4 7244815379) CALCIUM (test code = 9.4 mg/dL 8.6-10.6 0503709024) T PROTEIN (test code = 8.2 g/dL 6.3-8.2 4187484672) ALBUMIN (test code = 4.6 g/dL 3.5-5 7466429152) ALK PHOS (test code = 68 U/L 34-122 6420712755) ALT(SGPT) (test code = 139 U/L 9-51 H 1233259761) AST(SGOT) (test code = 221 U/L 13-40 H 7320928581) eGFR Calculation mL/min/1.73m2 (Non-) (test code = 5100479775) eGFR Calculation mL/min/1.73m2 () (test code = 2319544056) HUONG (test code = HUONG) Association of Glomerular Filtration Rate (GFR) and Staging of Kidney Disease*+ + + +| GFR (mL/min/1.73 m2)?| With Kidney Damage?|?Without Kidney Damage+ --------+ --------+ +|?>90?|?S tage one?|? Normal?+ ---------+ ---------+ +|?60-89? |?Stage two?|? Decreased GFR? + --+ --+ ------+|?30-59?|?Stage three?|? Stage three? + --+ --+ ------+|?15-29?|?Stage four? |? Stage four?+ -------+ -------+ +|?<15 (or dialysis)?|?Stage five? |? Stage five?+ -------+ -------+ +*Each stage assumes the associated GFR level has been in effect for at least three months.?Stages 1 to 5, with or without kidney disease, indicate chronic kidney disease.Notes: Determination of stages one and two (with eGFR >59mL/min/1.73 m2) requires estimation of kidney damage for at least three months as defined by structural or functional abnormalities of the kidney, manifested by either:Pathological abnormalities or Markers of kidney damage (including abnormalities in the composition of the blood or urine or abnormalities in imaging tests). Lab Interpretation Abnormal (test code = 92423-9) [facility] (48298)(TOTAL CHOLESTEROL, TRIGLYCERIDES, HDL)2018-12-29 21:43:00 Test Item Value Reference Range Interpretation Comments CHOL (test code = 189 mg/dL 120-200 1117082850) HDL (test code = 51 mg/dL >40 4201806985) HDLC RATIO (test code = See_Comment [Au tomated message] 4854911648) The system [employer] generated this result transmit magali reference range : <=5.0. The refe rence range was not u sed to interpret th is result as normal/abnormal . TRIG (test code = 132 mg/dL 30-170 9935405698) LDL CHOL (test code = 112 mg/dL See_Comment [Auto mated message] 76537-3) The system [employer] generated this result transmit magali reference range : <=160. The refe rence range was not u sed to interpret th is result as normal/abnormal . VLDL (test code = 26 mg/dL 5-60 7203526602) Lab Interpretation (test Normal code = 91304-1) [facility]. METABOLIC PANEL (31574)2018-12-29 21:43:00 Test Item Value Reference Range Interpretation Comments NA (test code = 138 mmol/L 135-145 0667862635) K (test code = 4.3 mmol/L 3.5-5 0419565871) CL (test code = 99 mmol/L 98-108 0664487605) CO2 TOTAL (test code = 23 mmol/L 23-31 6928835404) AGAP (test code = 2-16 5141301965) BUN (test code = 4 mg/dL 7-23 L 6939684350) GLUCOSE (test code = 142 mg/dL 70-110 H 9261051796) CREATININE (test code = 0.84 mg/dL 0.6-1.25 5617209802) TOTAL BILI (test code = 0.5 mg/dL 0.1-1.3 6081726958) CALCIUM (test code = 9.4 mg/dL 8.6-10.6 1309842475) T PROTEIN (test code = 8.2 g/dL 6.3-8.2 3569621072) ALBUMIN (test code = 4.6 g/dL 3.5-5 0981841318) ALK PHOS (test code = 68 U/L 34-122 3263475462) ALT(SGPT) (test code = 139 U/L 9-51 H 8052855534) AST(SGOT) (test code = 221 U/L 13-40 H 4205974603) eGFR Calculation mL/min/1.73m2 (Non-) (test code = 4896795066) eGFR Calculation mL/min/1.73m2 () (test code = 9307666222) HUONG (test code = HUONG) Association of Glomerular Filtration Rate (GFR) and Staging of Kidney Disease*+ + + +| GFR (mL/min/1.73 m2)?| With Kidney Damage?|?Without Kidney Damage+ --------+ --------+ +|?>90?|?S tage one?|? Normal?+ ---------+ ---------+ +|?60-89? |?Stage two?|? Decreased GFR? + --+ --+ ------+|?30-59?|?Stage three?|? Stage three? + --+ --+ ------+|?15-29?|?Stage four? |? Stage four?+ -------+ -------+ +|?<15 (or dialysis)?|?Stage five? |? Stage five?+ -------+ -------+ +*Each stage assumes the associated GFR level has been in effect for at least three months.?Stages 1 to 5, with or without kidney disease, indicate chronic kidney disease.Notes: Determination of stages one and two (with eGFR >59mL/min/1.73 m2) requires estimation of kidney damage for at least three months as defined by structural or functional abnormalities of the kidney, manifested by either:Pathological abnormalities or Markers of kidney damage (including abnormalities in the composition of the blood or urine or abnormalities in imaging tests). Lab Interpretation Abnormal (test code = 83759-2) [facility] (50232)(TOTAL CHOLESTEROL, TRIGLYCERIDES, HDL)2018-12-29 21:43:00 Test Item Value Reference Range Interpretation Comments CHOL (test code = 189 mg/dL 120-200 8094279944) HDL (test code = 51 mg/dL >40 9253388082) HDLC RATIO (test code = See_Comment [Au tomated message] 7764027510) The system [employer] generated this result transmit magali reference range : <=5.0. The refe rence range was not u sed to interpret th is result as normal/abnormal . TRIG (test code = 132 mg/dL 30-170 0207164422) LDL CHOL (test code = 112 mg/dL See_Comment [Auto mated message] 83561-4) The system [employer] generated this result transmit magali reference range : <=160. The refe rence range was not u sed to interpret th is result as normal/abnormal . VLDL (test code = 26 mg/dL 5-60 4461711488) Lab Interpretation (test Normal code = 44641-3) [facility]2019-[facility] 21:39:00 Test Item Value Reference Range Interpretation Comments APPEARANCE (test code = Hazy Clear A 9006598934) COLOR (test code = Yellow Yellow 2351396445) PH (test code = 4.8-8.0 8239416760) SP GRAVITY (test code = 1.003-1.030 8135529079) GLU U QUAL (test code = Normal Normal 9878088073) BLOOD (test code = Negative Negative 8635280321) KETONES (test code = Negative Negative 8178391321) PROTEIN (test code = Negative Negative 2887-8) UROBILIN (test code = Normal Normal 9514615691) BILIRUBIN (test code = Negative Negative 4546639332) NITRITE (test code = Negative Negative 9612082351) LEUK ALANA (test code = Negative Negative 1940349039) RBC/HPF (test code = <1 See_Comment [Autom ated message] 2052913751) The system [employer] generated this result transmitted ref erence range: 0 - 3 HP F. The reference range was not used to int erpret this result as normal/abnormal . WBC/HPF (test code = See_Comment [Autom ated message] 3608791765) The system [employer] generated this result transmitted ref erence range: 0 - 5 HP F. The reference range was not used to int erpret this result as normal/abnormal . BACTERIA (test code = Negative Negative 1474921853) MUCOUS (test code = Slight Negative LPF A 3255193289) SQ EPITH (test code = <1 See_Comment [Auto mated message] 8778013325) The system [employer] generated this result transmitted ref erence range: <=2 HPF. The reference range was not used to int erpret this result as normal/abnormal . Lab Interpretation (test Abnormal code = 68826-3) [facility] 21:39:00 Test Item Value Reference Range Interpretation Comments APPEARANCE (test code = Hazy Clear A 4902371292) COLOR (test code = Yellow Yellow 6529261083) PH (test code = 4.8-8.0 8286233934) SP GRAVITY (test code = 1.003-1.030 9307782783) GLU U QUAL (test code = Normal Normal 4625314072) BLOOD (test code = Negative Negative 1272619651) KETONES (test code = Negative Negative 4244906070) PROTEIN (test code = Negative Negative 2887-8) UROBILIN (test code = Normal Normal 7253028258) BILIRUBIN (test code = Negative Negative 4815509164) NITRITE (test code = Negative Negative 9847336185) LEUK ALANA (test code = Negative Negative 9390290423) RBC/HPF (test code = <1 See_Comment [Autom ated message] 5601510400) The system [employer] generated this result transmitted ref erence range: 0 - 3 HP F. The reference range was not used to int erpret this result as normal/abnormal . WBC/HPF (test code = See_Comment [Autom ated message] 8217090271) The system [employer] generated this result transmitted ref erence range: 0 - 5 HP F. The reference range was not used to int erpret this result as normal/abnormal . BACTERIA (test code = Negative Negative 8526320567) MUCOUS (test code = Slight Negative LPF A 4883335971) SQ EPITH (test code = <1 See_Comment [Auto mated message] 3974405102) The system [employer] generated this result transmitted ref erence range: <=2 HPF. The reference range was not used to int erpret this result as normal/abnormal . Lab Interpretation (test Abnormal code = 38356-3) [facility] 21:39:00 Test Item Value Reference Range Interpretation Comments APPEARANCE (test code = Hazy Clear A 3614425281) COLOR (test code = Yellow Yellow 7862345087) PH (test code = 4.8-8.0 3316082569) SP GRAVITY (test code = 1.003-1.030 1365830736) GLU U QUAL (test code = Normal Normal 5687087325) BLOOD (test code = Negative Negative 3697778415) KETONES (test code = Negative Negative 4870315532) PROTEIN (test code = Negative Negative 2887-8) UROBILIN (test code = Normal Normal 8585613683) BILIRUBIN (test code = Negative Negative 6591607449) NITRITE (test code = Negative Negative 5539814616) LEUK ALANA (test code = Negative Negative 7130077081) RBC/HPF (test code = <1 See_Comment [Autom ated message] 7048959256) The system [employer] generated this result transmitted ref erence range: 0 - 3 HP F. The reference range was not used to int erpret this result as normal/abnormal . WBC/HPF (test code = See_Comment [Autom ated message] 1018883393) The system [employer] generated this result transmitted ref erence range: 0 - 5 HP F. The reference range was not used to int erpret this result as normal/abnormal . BACTERIA (test code = Negative Negative 7895718765) MUCOUS (test code = Slight Negative LPF A 6006210833) SQ EPITH (test code = <1 See_Comment [Auto mated message] 1953208226) The system [employer] generated this result transmitted ref erence range: <=2 HPF. The reference range was not used to int erpret this result as normal/abnormal . Lab Interpretation (test Abnormal code = 72123-9) [facility] WITH [id number] 21:31:00 Test Item Value Reference Range Interpretation Comments WBC (test code = See_Comment [Automated 6690-2) message] The sy stem which generated this result transmitted reference range : 4.20 - 10.70 10*3/?L. The reference range was not used to interpret this result as normal/abnormal . RBC (test code = See_Comment [Automated 249-8) message] The sy stem which generated this result transmitted reference range : 4.26 - 5.52 10*6/?L. The reference range was not used to interpret this result as normal/abnormal . HGB (test code = 12.3 g/dL 12.2-16.4 718-7) HCT (test code = 42.2 % 38.4-49.3 4544-3) MCV (test code = 79.2 fL 81.7-95.6 L 787-2) MCH (test code = 23.1 pg 26.1-32.7 L 785-6) MCHC (test code = 29.1 g/dL 31.2-35 L 786-4) RDW-SD (test code = 53.0 fL 38.5-51.6 H 47441-7) RDW-CV (test code = 19.6 % 12.1-15.4 H 788-0) PLT (test code = See_Comment [Automated 777-3) message] The sy stem which generated this result transmitted reference range : 150 - 328 10*3/ ?L. The reference r rubens was not used to interpret this result as normal/abnormal . MPV (test code = 10.5 fL 9.8-13 34475-6) NRBC/100 WBC (test See_Comment [Automat ed code = 8714318673) message] The system which generated this result transmitted reference range : 0.0 - 10.0 /100 WBCs. The refer ence range was not u sed to interpret th is result as normal/abnormal . NRBC x10^3 (test code <0.01 See_Comment [Auto mated = 6071424120) message] The s ystem which generated this result transmitted reference range : 10*3/?L. The reference range was not used to interpret this result as normal/abnormal . GRAN MAT (NEUT) % 60.6 % (test code = 770-8) IMM GRAN % (test code 0.70 % = 6057655099) LYMPH % (test code = 28.3 % 736-9) MONO % (test code = 5.7 % 5905-5) EOS % (test code = 3.9 % 713-8) BASO % (test code = 0.8 % 706-2) GRAN MAT x10^3(ANC) 4.48 10*3/uL 1.99-6.95 (test code = 4899778124) IMM GRAN x10^3 (test 0.05 10*3/uL 0-0.06 code = 9265836499) LYMPH x10^3 (test code 2.09 10*3/uL 1.09-3.23 = 731-0) MONO x10^3 (test code 0.42 10*3/uL 0.36-1.02 = 742-7) EOS x10^3 (test code = 0.29 10*3/uL 0.06-0.53 711-2) BASO x10^3 (test code 0.06 10*3/uL 0.01-0.09 = 704-7) Lab Interpretation Abnormal (test code = 76575-2) [facility] WITH [id number] 21:31:00 Test Item Value Reference Range Interpretation Comments WBC (test code = See_Comment [Automated 6690-2) message] The sy stem which generated this result transmitted reference range : 4.20 - 10.70 10*3/?L. The reference range was not used to interpret this result as normal/abnormal . RBC (test code = See_Comment [Automated 789-8) message] The sy stem which generated this result transmitted reference range : 4.26 - 5.52 10*6/?L. The reference range was not used to interpret this result as normal/abnormal . HGB (test code = 12.3 g/dL 12.2-16.4 718-7) HCT (test code = 42.2 % 38.4-49.3 4544-3) MCV (test code = 79.2 fL 81.7-95.6 L 787-2) MCH (test code = 23.1 pg 26.1-32.7 L 785-6) MCHC (test code = 29.1 g/dL 31.2-35 L 786-4) RDW-SD (test code = 53.0 fL 38.5-51.6 H 77281-0) RDW-CV (test code = 19.6 % 12.1-15.4 H 788-0) PLT (test code = See_Comment [Automated 777-3) message] The sy stem which generated this result transmitted reference range : 150 - 328 10*3/ ?L. The reference r rubens was not used to interpret this result as normal/abnormal . MPV (test code = 10.5 fL 9.8-13 12288-5) NRBC/100 WBC (test See_Comment [Automat ed code = 0839103422) message] The system which generated this result transmitted reference range : 0.0 - 10.0 /100 WBCs. The refer ence range was not u sed to interpret th is result as normal/abnormal . NRBC x10^3 (test code <0.01 See_Comment [Auto mated = 3231876886) message] The s ystem which generated this result transmitted reference range : 10*3/?L. The reference range was not used to interpret this result as normal/abnormal . GRAN MAT (NEUT) % 60.6 % (test code = 770-8) IMM GRAN % (test code 0.70 % = 6307433325) LYMPH % (test code = 28.3 % 736-9) MONO % (test code = 5.7 % 5905-5) EOS % (test code = 3.9 % 713-8) BASO % (test code = 0.8 % 706-2) GRAN MAT x10^3(ANC) 4.48 10*3/uL 1.99-6.95 (test code = 8459699204) IMM GRAN x10^3 (test 0.05 10*3/uL 0-0.06 code = 5447063217) LYMPH x10^3 (test code 2.09 10*3/uL 1.09-3.23 = 731-0) MONO x10^3 (test code 0.42 10*3/uL 0.36-1.02 = 742-7) EOS x10^3 (test code = 0.29 10*3/uL 0.06-0.53 711-2) BASO x10^3 (test code 0.06 10*3/uL 0.01-0.09 = 704-7) Lab Interpretation Abnormal (test code = 26437-1) [facility] WITH [id number] 21:31:00 Test Item Value Reference Range Interpretation Comments WBC (test code = See_Comment [Automated 4306-2) message] The sy stem which generated this result transmitted reference range : 4.20 - 10.70 10*3/?L. The reference range was not used to interpret this result as normal/abnormal . RBC (test code = See_Comment [Automated 058-8) message] The sy stem which generated this result transmitted reference range : 4.26 - 5.52 10*6/?L. The reference range was not used to interpret this result as normal/abnormal . HGB (test code = 12.3 g/dL 12.2-16.4 718-7) HCT (test code = 42.2 % 38.4-49.3 4544-3) MCV (test code = 79.2 fL 81.7-95.6 L 787-2) MCH (test code = 23.1 pg 26.1-32.7 L 785-6) MCHC (test code = 29.1 g/dL 31.2-35 L 786-4) RDW-SD (test code = 53.0 fL 38.5-51.6 H 43196-9) RDW-CV (test code = 19.6 % 12.1-15.4 H 788-0) PLT (test code = See_Comment [Automated 777-3) message] The sy stem which generated this result transmitted reference range : 150 - 328 10*3/ ?L. The reference r rubens was not used to interpret this result as normal/abnormal . MPV (test code = 10.5 fL 9.8-13 59583-9) NRBC/100 WBC (test See_Comment [Automat ed code = 1176766456) message] The system which generated this result transmitted reference range : 0.0 - 10.0 /100 WBCs. The refer ence range was not u sed to interpret th is result as normal/abnormal . NRBC x10^3 (test code <0.01 See_Comment [Auto mated = 5454391499) message] The s ystem which generated this result transmitted reference range : 10*3/?L. The reference range was not used to interpret this result as normal/abnormal . GRAN MAT (NEUT) % 60.6 % (test code = 770-8) IMM GRAN % (test code 0.70 % = 8981363560) LYMPH % (test code = 28.3 % 736-9) MONO % (test code = 5.7 % 5905-5) EOS % (test code = 3.9 % 713-8) BASO % (test code = 0.8 % 706-2) GRAN MAT x10^3(ANC) 4.48 10*3/uL 1.99-6.95 (test code = 8273160602) IMM GRAN x10^3 (test 0.05 10*3/uL 0-0.06 code = 7703696032) LYMPH x10^3 (test code 2.09 10*3/uL 1.09-3.23 = 731-0) MONO x10^3 (test code 0.42 10*3/uL 0.36-1.02 = 742-7) EOS x10^3 (test code = 0.29 10*3/uL 0.06-0.53 711-2) BASO x10^3 (test code 0.06 10*3/uL 0.01-0.09 = 704-7) Lab Interpretation Abnormal (test code = 97500-6) [facility] [id number] 16:29:00* * * * * * * * ORIGINAL REPORT * * * * * * * *XR SPINE THORACIC 3 VW HISTORY: Male 43 years Left side lower thorasic pain COMPARISON: None FINDINGS: Slight levocurvature of the midthoracic spine. The vertebral bodies are normal in height and in normal alignment. No more than mild degenerative changesare present. 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 FINDINGS: The heart and great vessels are normal and the lungs are well expanded andclear. Theneck is partially fused. [facility], Radiant Results Inft User - 12/29/2018 11:04 AM CDT* * * * * * * * ORIGINAL REPORT * * * * * * * *EXAM: XR CHEST 2 VWHISTORY: Midback pain COMPARISON: None.FINDINGS:The heart and great vessels are normal and the lungs are well expanded andclear. The neck is partially fused.[facility]"
[2023-04-16] MEDS ORDERED: ONDANSETRON 4 MG/2 ML VIAL ONE (21:03)
[2023-04-16] MEDS ORDERED: ASPIRIN 81 MG CHEWABLE TABLET ONE (21:03)
[2023-04-16 21:09] LABS: Absolute Lymphocytes (CBC) 2.4 K/uL (0.7-4.9); Hematocrit 43.2 % (39.6-49.0); Lymphocytes % 22.3 % (15.3-44.8); MCV 89.2 fL (80-100); MPV 7.5 fL (7.6-11.3); Platelets 258 thou/uL (152-406); RBC Red Blood Cell Count 4.84 M/uL (4.33-5.43)
[2023-04-16 21:15] LABS: Potassium 3.7 mEq/L (3.5-5.1); Troponin High Sensitivity 4.9 pg/mL (<58.9)
--- NOTE | 2023-04-16 21:34 | RAD REPORT ---
EXAM DESCRIPTION: RADChest Single View04/16/2023 9:19 pm CLINICAL HISTORY: CHEST PAIN COMPARISON: Chest Single View dated 09/06/2022 TECHNIQUE: Portable AP view of the chest. FINDINGS: The lungs are clear. No pneumothorax or effusion. The cardiomediastinal contours are unre markable. IMPRESSION: No acute cardiopulmonary process.
[2023-04-16 21:51] LABS: Anisocytosis 1+; Blood Morphology Comment NOTED (NOT SEEN); Platelet Estimate ADEQ; White Blood Cell Scan OK (OK)
[2023-04-16] MEDS ORDERED: NA CHLORIDE 0.9% 1,000 ML ONE (22:29)
--- NOTE | 2023-04-17 00:05 | EDPHYS ---
Physician Documentation [facility] Name: Estuardo Power Age: 47 yrs Sex: Male : 1975 Arrival Date: 04/16/2023 Time: 19:53 Bed 7 Private MD: ED Physician Talia Garces Historical: - Allergies: 04/16 20:01 No Known Allergies; vc1 - PMHx: 20:01 Myocardial infarction; vc1 - PSHx: 20:01 Gastric Bypass; neck; cardiac stent; vc1 - Immunization history:: Client reports receiving the 2nd dose of the Covid vaccine, Flu vaccine is up to date. - Social history:: Smoking status: Patient reports the use of cigarette tobacco products, denies chronic smoking, but will smoke occasionally. Vital Signs: 19:59 BP 95 / 58; Pulse 104; Resp 20; Temp 98.8; Pulse Ox 100% ; Weight 108.86 kg; Height 5 vc1 ft. 10 in. ; Pain 12/14; 22:04 BP 90 / 51; Pulse 89; Resp 16; Pulse Ox 100% on R/A; jb4 23:48 BP 106 / 61; Pulse 88; Resp 16; Pulse Ox 99% on R/A; jb4 04/17 00:29 BP 110 / 62; Pulse 81; Resp 16; Pulse Ox 100% on R/A; jb4 04/16 19:59 Body Mass Index 34.44 (108.86 kg, 177.8 cm) vc1 04/16 19:59 Pain Scale: Adult vc1 MDM: 04/16 20:05 Patient medically screened. ci 04/17 00:01 Special discussion: Based on the patient's history, exam, and Dx evaluation, there is ci no indication for emergent intervention or inpatient Tx. It is understood by the patient/guardian that if the Sx's persist or worsen they need to return immediately for re-evaluation. 00:08 Post IV fluid administration reassessment for Sepsis: Current patient vital signs ci reviewed: Yes. Medication response: Zofran relieved the patient's nausea. Response to treatment: the patient's symptoms have resolved after treatment, the patient is not short of breath, the patient's pain is gone. 04/16 20:37 Order name: Basic Metabolic Panel; Complete Time: 22:07 ci 11/10 22:07 Interpretation: Abnormal: CRE 1.41; GFR 61. ci 04/16 20:37 Order name: CBC with Diff; Complete Time: 22:07 ci 04/16 20:37 Order name: Troponin HS; Complete Time: 22:07 ci 04/16 22:08 Interpretation: Within normal limits: Troponin HS 4.9. ci 04/16 21:52 Order name: CBC Smear Scan; Complete Time: 22:07 EDMS 04/16 22:09 Order name: Troponin HS; Complete Time: 22:59 ci 04/17 00:15 Order name: NT PRO-BNP EDMS 04/16 20:37 Order name: XRAY Chest (1 view); Complete Time: 22:07 ci 04/16 22:08 Interpretation: No acute disease: Per Radiologist's finding(s): IMPRESSION: No acute ci cardiopulmonary process. 04/16 20:37 Order name: EKG; Complete Time: 20:37 ci 04/16 20:38 Interpretation: Within normal limits: Normal sinus rhythm, HR 100, QTc 438, no acute ci ischemic changes. 04/16 20:37 Order name: Cardiac monitoring; Complete Time: 20:47 ci 04/16 20:37 Order name: EKG - Nurse/Tech; Complete Time: 20:47 ci 04/16 20:37 Order name: IV Saline Lock; Complete Time: 20:47 ci 04/16 20:37 Order name: Labs collected and sent; Complete Time: 20:47 ci 04/16 20:37 Order name: O2 Per Protocol; Complete Time: 20:47 ci 04/16 20:37 Order name: O2 Sat Monitoring; Complete Time: 20:47 ci Administered Medications: 04/16 20:53 Drug: Aspirin PO Chewable Tablet 324 mg PO once; 81 mg tablets x 3 Route: PO; rv 21:00 Drug: Ondansetron IVP 4 mg IVP once; over 2 minutes Route: IVP; Site: right antecubital;rv 22:18 Drug: NS 0.9% IV 1000 ml IV at 1000 ml once Route: IV; Rate: 1000 ml; Site: right jb4 antecubital; Disposition Summary: 04/17/23 00:04 Discharge Ordered Notes: Location: Home ci Condition: Stable ci Diagnosis - Chest pain, unspecified ci - Acute kidney failure, unspecified ci Followup: ci - With: Private Physician - When: 1 - 2 days - Reason: Recheck today's complaints, Recheck creatinine Discharge Instructions: - Discharge Summary Sheet ci - Nonspecific Chest Pain, Adult, [id number] ci - Acute Kidney Injury, Adult ci Forms: - Medication Reconciliation Form ci - Thank You Letter ci - Antibiotic Education ci - Prescription Opioid Use ci - Patient Portal Instructions ci - Leadership Thank You Letter ci Signatures: Dispatcher [employer] EDAlhaji Felix RN RN jb4 Adarsh Portillo RN RN Jayleen Lopez RN RN vc1 Talia Garces ci Corrections: (The following items were deleted from the chart) 20:38 20:38 Normal sinus rhythm, HR 100, QTc 438, no acute ischemic changes. ci ci
--- NOTE | 2023-04-17 00:05 | ER ---
Nurse's Notes [facility] Name: Estuardo Power Age: 47 yrs Sex: Male : 1975 Arrival Date: 04/16/2023 Time: 19:53 Bed 7 Private MD: Diagnosis: Chest pain, unspecified;Acute kidney failure, unspecified Presentation: 04/16 19:59 Chief complaint: Patient states: On my way to work and started feeling nauseous and vc1 having chest pain. My left arm is numb. I had a heart attack in September and they placed a stent. Coronavirus screen: Vaccine status: Patient reports receiving the 2nd dose of the covid vaccine. Client denies travel out of the [place] in the last 14 days. At this time, the client does not indicate any symptoms associated with coronavirus-19. Ebola Screen: Patient negative for fever greater than or equal to 101.5 degrees Fahrenheit, and additional compatible Ebola Virus Disease symptoms Patient denies exposure to infectious person. Patient denies travel to an Ebola-affected area in the 21 days before illness onset. No symptoms or risks identified at this time. Initial Sepsis Screen: Does the patient meet any 2 criteria? No. Patient's initial sepsis screen is negative. Does the patient have a suspected source of infection? No. Patient's initial sepsis screen is negative. Risk Assessment: Do you want to hurt yourself or someone else? Patient reports no desire to harm self or others. Onset of symptoms was April 16, 2023 at 19:00. 19:59 Method Of Arrival: Ambulatory vc1 19:59 Acuity: JOSIAS 2 vc1 Triage Assessment: 20:02 General: Appears uncomfortable, Behavior is cooperative, appropriate for age. Pain: vc1 Complains of pain in anterior aspect of left upper chest Pain radiates to right arm and left arm Pain currently is 7 out of 10 on a pain scale. EENT: No deficits noted. No signs and/or symptoms were reported regarding the EENT system. Neuro: No deficits noted. Cardiovascular: Chest pain is described as severe, quality is sharp. Respiratory: Airway is patent Respiratory effort is even, unlabored, Respiratory pattern is regular, symmetrical. GI: Reports nausea. : No deficits noted. No signs and/or symptoms were reported regarding the genitourinary system. Derm: No deficits noted. No signs and/or symptoms reported regarding the dermatologic system. Musculoskeletal: No deficits noted. No signs and/or symptoms reported regarding the musculoskeletal system. Historical: - Allergies: 20:01 No Known Allergies; vc1 - PMHx: 20:01 Myocardial infarction; vc1 - PSHx: 20:01 Gastric Bypass; neck; cardiac stent; vc1 - Immunization history:: Client reports receiving the 2nd dose of the Covid vaccine, Flu vaccine is up to date. - Social history:: Smoking status: Patient reports the use of cigarette tobacco products, denies chronic smoking, but will smoke occasionally. Screenin/11 00:29 [facility] ED Fall Risk Assessment (Adult) History of falling in the last 3 months, jb4 including since admission No falls in past 3 months (0 pts) Confusion or Disorientation No (0 pts). Abuse screen: Denies threats or abuse. Nutritional screening: No deficits noted. Tuberculosis screening: No symptoms or risk factors identified. Assessment: 04/16 23:48 Reassessment: Patient appears in no apparent distress at this time. Patient and/or jb4 family updated on plan of care and expected duration. Pain level reassessed. Patient is alert, oriented x 3, equal unlabored respirations, skin warm/dry/pink. 04/17 00:29 Reassessment: Patient appears in no apparent distress at this time. Patient and/or jb4 family updated on plan of care and expected duration. Pain level reassessed. Patient is alert, oriented x 3, equal unlabored respirations, skin warm/dry/pink. Vital Signs: 04/16 19:59 BP 95 / 58; Pulse 104; Resp 20; Temp 98.8; Pulse Ox 100% ; Weight 108.86 kg; Height 5 vc1 ft. 10 in. ; Pain 7/10; 22:04 BP 90 / 51; Pulse 89; Resp 16; Pulse Ox 100% on R/A; jb4 23:48 BP 106 / 61; Pulse 88; Resp 16; Pulse Ox 99% on R/A; jb4 04/17 00:29 BP 110 / 62; Pulse 81; Resp 16; Pulse Ox 100% on R/A; jb4 04/16 19:59 Body Mass Index 34.44 (108.86 kg, 177.8 cm) [facility] 04/16 19:59 Pain Scale: Adult 1 ED Course: 04/16 19:56 Patient arrived in ED. gm2 20:01 Triage completed. vc1 20:02 Arm band placed on right wrist. vc1 20:04 Talia Garces is Attending Physician. ci 20:05 Talia Garces is Attending Physician. ci 20:40 Inserted saline lock: 20 gauge in right antecubital area, using aseptic technique. kmf Blood collected. 20:47 Adarsh Portillo, RN is Primary Nurse. rv 21:21 XRAY Chest (1 view) In Process Unspecified. EDMS 04/17 00:29 Patient has correct armband on for positive identification. Bed in low position. Call jb4 light in reach. Side rails up X 1. Client placed on continuous cardiac and pulse oximetry monitoring. NIBP monitoring applied. 00:29 No provider procedures requiring assistance completed. IV discontinued, intact, jb4 bleeding controlled, No redness/swelling at site. Pressure dressing applied. Patient maintains SpO2 saturation greater than 95% on room air. Administered Medications: 04/16 20:53 Drug: Aspirin PO Chewable Tablet 324 mg PO once; 81 mg tablets x 3 Route: PO; rv 21:00 Drug: Ondansetron IVP 4 mg IVP once; over 2 minutes Route: IVP; Site: right antecubital;rv 22:18 Drug: NS 0.9% IV 1000 ml IV at 1000 ml once Route: IV; Rate: 1000 ml; Site: right jb4 antecubital; Outcome: 04/17 00:04 Discharge ordered by . ci 00:29 Discharged to home ambulatory, jb4 00:29 Condition: stable 00:29 Discharge instructions given to patient, Instructed on discharge instructions, follow up and referral plans. Demonstrated understanding of instructions, follow-up care, 00:31 Patient left the ED. jb4 Signatures: Dispatcher [employer] EDHI Alhaji Echols RN CONCEPCION jb4 Adarsh Portillo, RN CONCEPCION rv Jayleen Lopez RN RN 1 Talia Garces Ginger gm2 Krys Jorge kmf
[2023-04-17 01:03] VITALS: TEMP 98.8
[2023-04-17 01:09] VITALS: BP 110/62; O2SAT 100
--- NOTE | 2023-04-17 14:07 | EKG ---
Test Date: 2023-04-16 Test Time: 20:58:08 Rehab Aid: GREGG MEASUREMENT RESULTS: Intervals: Rate: 100 NV: 138 QRSD: 72 QT: 340 QTc: 438 [place]: P: 71 NV: 138 QRS: 54 T: 57 INTERPRETIVE STATEMENTS: Normal sinus rhythm Normal ECG Compared to ECG 09/06/2022 03:03:16 No significant changes Electronically Signed On 04-17-23 14:06:06 HYDROELECTRIC MECHANIC by Gustavo Flmeing
== END 2023-04-17 00:31 | disposition home or self-care (01) ==
LOC: ER 19:53
DX: R07.89 Other chest pain (principal); N17.9 Acute kidney failure, unspecified; I25.2 Old myocardial infarction; F17.210 Nicotine dependence, cigarettes, uncomplicated; Z95.818 Presence of other cardiac implants and grafts; Z11.52 Encounter for screening for COVID-19
CPT/HCPCS: 93005; 85025; 80048; 36415; 84484 ×2; 83880; 71045; 96374; 99285; J2405; J7030

== ENCOUNTER 2023-04-17 18:26 | Observation (INO) | payer BC ==
--- OUTSIDE RECORDS SUMMARY | 2023-04-17 18:30 | XMS REPORT | Continuity of Care Document ---
:1975 Author Organization [facility] t Address [address] [place] [address] [place] [id number] Care Team Providers Name Role Phone PCP, [...] Policy Number Effective Date Expiration Date S [facility] - [id number] 2018 00:00:00 OUT OF STATE Problems Condition Condition Condition Status Onset Resolution Last Treating Co mments Source Name Details Category Date Date Treatment Clinician Date Iron Iron Disease Active Overview: Univer s deficiency deficiency 3-03 Iron 32 i ty of 00:00: 06/11/2016 [place] [address] Medical Branch Injury, Injury, Disease Active 2013- Univers other and other and 0-14 ity of unspecifie unspecifie 00:00: Jarett leos d, 00 Medical unspecifie unspecifie Br anch d site d site Closed Closed Disease Active 2013-06 Overview: Univer s fracture fracture 0-14 ICD10 ity of of of 00:00: Diagnosis [place] cervical cervical 00 Term Medica l vertebra vertebra 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 Injury at Injury at [...] rs ideation ideation 0-14 ity of 00:00: [place] 00 Medical Branch S/P S/P Disease Active 2013-06 Univers gastric gastric 0-14 ity of bypass bypass 00:00: [place] 00 Medical Branch Tobacco Tobacco Disease Active Univers use use 6-16 ity of disorder disorder 00:00: [place] 00 Medical Branch Alcohol Alcohol Disease Active Univers use use 1-06 ity of 00:00: [place] 00 Medical Branch Status Status Disease Active Univers post post 1-18 ity of gastric gastric 00:00: [place] bypass for bypass for 00 Me dical obesity obesity Branch Metabolic Metabolic Disease Active 2010-06 Uni vers syndrome syndrome 2-15 ity of 00:00: [place] 00 Medical Branch Morbid Morbid Disease Active Univers obesity obesity ity of [facility] Other Other Disease Active Univers chronic chronic ity of nonalcohol nonalcohol [place] ic liver ic liver Medica l disease disease Branch Allergies, Adverse Reactions, Alerts Allergy Allergy Status Severity Reaction(s) Onset Inactive Treating Comm ents Source Name Type Date Date Clinician No Known DA Active U 2012-06 [facility] Allergie 1-06 Clear s 00:00: [address] NO KNOWN Drug Active Univers ALLERGIE Class ity of S [facility] Social History Social Habit Start Date Stop Date Quantity Comments Source History of tobacco Cigarette Smoker [facility] Alcohol intake [facility] Sexual orientation Method [facility] Tobacco Comment 2016-09-01 2016-09-01 Cut back from Univer sity of 00:00:00 00:00:00 1/2 pack per [place] Medica l week to once a Branch week / 20 yrs Alcohol Comment 2011-12-08 2011-12-0812/2011 - once Univer sity of 00:00:00 00:00:00 week - 6 beers [facility] [facility] jean-claude or drinks ( [place] crown on rocks ( 1-2 ounce) Sex Assigned At [birth year] [facility] 00:00:00 00:00:00 Hospital Smoking Status Start Date Stop Date Source Tobacco smoking consumption Meth [facility] unknown Current every day smoker 2018-12-29 00:00:00 [facility] versity [facility] Medical Branch Medications Ordered Filled Start Stop [...] Branch 4 unit-mg-mg Chew methylPREDN 2019- No [id number] Take by Univers ISolone 4 09-14-25 mouth ity of mg tablets 00:00: 00:00 SEE-INSTRU [place] 00 :00 CTIONS. Medical follow Branch package directions azithromyci 2019- No [id number] 250mg Take 1 Univers n 250 mg 09-14 tablet by ity o f tablet 00:00: 00:00 mouth [place] 00 :00 SEE-INSTRU Medical CTIONS. Branch Take 500 mg day 1, then 250 mg days 2 to 5. methylPREDN 2019- No [id number] Take by [place] ISolone 4 09-1425 mouth ity of mg tablets 00:00: 00:00 SEE-INSTRU [place] 00 :00 CTIONS. Medical follow Branch package directions azithromyci 2019- No [id number] 250mg Take 1 Univers n 250 mg 09-14 tablet by ity o f tablet 00:00: 00:00 mouth [place] 00 :00 SEE-INSTRU Medical CTIONS. Branch Take 500 mg day 1, then 250 mg days 2 to 5. methylPREDN 2019- No [id number] Take by [place] ISolone 4 09-14-25 mouth ity of mg tablets 00:00: 00:00 SEE-INSTRU [place] 00 :00 CTIONS. Medical follow Branch package directions azithromyci 2019- No [id number] 250mg Take 1 Univers n 250 mg [...] days 2 to 5. Cholecalcif 2019- No [id number] 2000U Take 1 Univers joyce, 08-0725 tablet by ity of Vitamin D3, 00:00: 00:00 [place] (VITAMIN 00 :00 daily. Medical D3) 2,000 Branch unit tablet SERTraline 2019- No [id number] 50mg Take 1 Univers (ZOLOFT) 50 08-0725 tablet by it y of mg tablet 00:00: 00:00 mouth [place] 00 :00 daily. Medical Branch Cholecalcif 2019- No [id number] 2000U Take 1 Univers joyce, -08 11-25 tablet by ity of Vitamin D3, 00:00: 00:[place] (VITAMIN 00 :00 daily. Medical D3) 2,000 Branch unit tablet SERTraline 2018- No [id number] 50mg Take 1 Univers (ZOLOFT) 50 08-07-25 tablet by it y of mg tablet 00:00: 00:00 mouth [place] 00 :00 daily. Medical Branch Cholecalcif 2019- No [id number] 2000U Take 1 Univers joyce, 08-07-25 tablet by ity of Vitamin D3, 00:00: 00:[place] (VITAMIN 00 :00 daily. Medical D3) 2,000 Branch unit tablet SERTraline 2019- No [id number] 50mg Take 1 Univers (ZOLOFT) 50 08-07-25 tablet by it y of mg tablet 00:00: 00:00 mouth [place] 00 :00 daily. Medical Branch clonazePAM 2019- No [id number] .5mg Take 1 Univers 0.5 mg 2-03 13-25 tablet by ity of tablet 00:00: 00:00 mouth at [place] 00 :00 bedtime. Medical Branch clonazePAM 2019- No [id number] .5mg Take 1 Univers 0.5 mg 2-25 tablet by ity of tablet 00:00: 00:00 mouth at [place] 00 :00 bedtime. Medical Branch clonazePAM 2019- No [id number] .5mg Take 1 Univers 0.5 mg 2-03 13-25 tablet by ity of tablet 00:00: 00:00 mouth at [place] 00 :00 bedtime. [facility] Branch Immunizations Ordered Filled Date Status Comments Source Immunization Name Immunization Name Moderna COVID-19 Moderna COVID-19 2020-11-14 Completed Vaccine Vaccine 00:00:00 Moderna COVID-19 Moderna COVID-19 2020-10-09 Completed Vaccine Vaccine 00:00:00 Influenza Virus 2016-03-07 Completed Universit y of Vaccine 00:00:00 [facility] Influenza Virus 2016-03-07 Completed Universit y of Vaccine 00:00:00 [facility] Influenza Virus 2016-03-07 Completed Universit y of Vaccine 00:00:00 [facility] Influenza Virus 2016-03-07 Completed Universit y of Vaccine 00:00:00 [facility] Influenza Virus 2016-03-07 Completed Universit y of Vaccine 00:00:00 [facility] Influenza Virus 2016-03-07 Completed Universit y of Vaccine 00:00:00 [facility] Influenza Virus 2016-03-07 Completed Universit y of Vaccine 00:00:00 [facility] Influenza Virus 2015-03-07 Completed Universit y of Vaccine 00:00:00 [facility] Influenza Virus 2015-03-07 Completed Universit y of Vaccine 00:00:00 [facility] Influenza Virus 2015-03-07 Completed Universit y of Vaccine 00:00:00 [facility] Influenza Virus 2015-03-07 Completed Universit y of Vaccine 00:00:00 [facility] Influenza Virus 2015-03-07 Completed Universit y of Vaccine 00:00:00 [facility] Influenza Virus 2015-03-07 Completed Universit y of Vaccine 00:00:00 [facility] Influenza Virus 2015-03-07 Completed Universit y of Vaccine 00:00:00 [facility] Pneumococcal 2014-03-27 Completed University o f Polysaccharide, [...] 2010-03-07 Completed Universit y of Vaccine 00:00:00 [facility] Influenza Virus 2010-03-07 Completed Universit y of Vaccine 00:00:00 [facility] Influenza Virus 2010-03-07 Completed Universit y of Vaccine 00:00:00 [facility] Influenza Virus 2010-03-07 Completed Universit y of Vaccine 00:00:00 [facility] Influenza Virus 2010-03-07 Completed Universit y of Vaccine 00:00:00 [facility] Influenza Virus 2010-03-07 Completed Universit y of Vaccine 00:00:00 [facility] Influenza Virus 2010-03-07 Completed Universit y of Vaccine 00:00:00 [facility] FLUCELVAX QUAD PF Unknown Completed [facility] FLUCELVAX QUAD PF Unknown Completed [facility] Vital Signs Vital Name Observation Time Observation Value Comments Source Systolic blood 2018-12-29 14:47:00 110 mm[Hg] Univer sity of pressure [facility] Diastolic blood 2018-12-29 14:47:00 70 mm[Hg] Unive rsity of pressure [facility] Heart rate 2018-12-29 14:47:00 94 /min Universi ty of [facility] Respiratory rate 2018-12-29 14:47:00 18 /min Univ ersity of [facility] Body height 2018-12-29 14:47:00 177.8 cm Universi ty of [facility] Body weight 2018-12-29 14:47:00 113.127 kg Universi ty of [facility] BMI 2018-12-29 14:47:00 35.79 kg/m2 Universi ty of [facility] Oxygen saturation in 2018-12-29 14:47:00 94 /min University of Arterial blood by [facility] Pulse oximetry Branch Systolic blood 2018-12-29 14:47:00 110 mm[Hg] Univer sity of pressure [facility] Diastolic blood 2018-12-29 14:47:00 70 mm[Hg] Unive rsity of [facility] Heart rate 2018-12-29 14:47:00 94 /min Universi ty of [place] [facility] Respiratory rate 2018-12-29 14:47:00 18 /min [facility] height 2018-12-29 14:47:00 177.8 cm Universi ty of [place] [facility] [place] Body weight 2018-12-29 14:47:00 113.127 kg Universi ty of [place] Medical Branch BMI 2018-12-29 14:47:00 35.79 kg/m2 Universi ty [facility] Oxygen saturation in 2018-12-29 14:47:00 94 /min University of Arterial blood by [facility] Pulse oximetry Branch Procedures Procedure Date / Time Performing Clinician Source Performed URINALYSIS 2018-12-29 16:10:00 Miky, [facility] o f [facility] GLYCOSYLATED HEMOGLOBIN 2018-12-29 16:06:00 Miky, [facility] (A1C) [facility] Branch SEDIMENTATION RATE 2018-12-29 16:06:00 Eliazar Bolaños [facility] CBC WITH DIFFERENTIAL 2018-12-29 16:06:00 Eliazar Bolaños [facility] HEPATITIS B SURFACE 2018-12-29 16:05:00 Miky [facility] ANTIBODY [facility] HEPATITIS B SURFACE 2018-12-29 16:05:00 Miky [facility] ANTIGEN [facility] HCV ANTIBODY 2018-12-29 16:05:[facility] HBC ANTIBODY (IGM & IGG) 2018-12-29 16:05:00 Eliazar Bolaños [facility] COMP. METABOLIC PANEL 2018-12-29 16:05:00 [facility] LIPID PANEL 2018-12-29 16:05:00 Miky [facility] ([address])(TOTAL Medical Branch CHOLESTEROL, TRIGLYCERIDES, HDL) XR CHEST 2 VW 2018-12-29 15:54:59 Miky [facility] XR SPINE THORACIC 3 VW 2018-12-29 15:54:14 Eliazar Bolaños [facility] Plan of Care Planned Activity Planned Date Details Comments Source Future Scheduled 2023-04-09 Screening for [facility] Test 01:50:16 malignant neoplasm of colon (procedure) [code = 153873757] Future Scheduled 2023-04-09 COVID-19 VACCINE ([facility] Test 01:50:16 - season) [code = COVID-19 VACCINE (3 - season)] Future Scheduled 2023-04-09 Screening for [facility] Test 01:50:16 malignant neoplasm of colon (procedure) [code = 105308346] Future Scheduled 2023-04-09 Screening for [facility] Test 01:50:16 malignant neoplasm of colon (procedure) [code = 558302712] Future Scheduled 2023-04-09 Screening for [facility] Test 01:50:16 malignant neoplasm of colon (procedure) [code = 438709979] Future Scheduled 2023-04-09 Screening for [facility] Test 01:50:16 malignant neoplasm of colon (procedure) [code = 683537617] Future Scheduled 2023-04-09 Screening for [facility] Test 01:50:16 malignant neoplasm of colon (procedure) [code = 732525973] Future Scheduled 2023-04-09 Screening for [facility] Test 01:50:16 malignant neoplasm of colon (procedure) [code = 408982576] Future Scheduled 2023-04-09 COVID-19 VACCINE (3 [facility] Test 01:50:16 - season) [code = COVID-19 VACCINE (3 - season)] Future Scheduled 2023-04-09 Screening for [facility] Test 01:50:16 malignant neoplasm of colon (procedure) [code = 339960659] Future Scheduled 2023-04-09 Screening for [facility] Test 01:50:16 malignant neoplasm of colon (procedure) [code = 116863338] Future Scheduled 2023-04-09 Screening for [facility] Test 01:50:16 malignant neoplasm of colon (procedure) [code = 300395208] Encounters Start End Encounter Admission Attending Care Care Encounter Source Date/Time Date/Time Type Type Clinicians Facility Department ID 2023-03-02 Outpatient Ned [facility] [id number] Common 09:20:01 [place] [id number] [facility] 2022-03-05 Outpatient CHW CHW [id number] [place] 14:19:[address] [place] [address] 2023-04-08 2023-04-08 Clinical Bocirnea, 1.2.840.1 [id number] Methodi 10:35:00 10:40:[address] Support Dori [id number] 3.430.2.7 Hospit a .3.578863 l .8 2023-04-08 2023-04-08 Clinical Bocirnea, 1.2.840.1 [id number] Methodi 10:35:00 10:40:[address]1.[address] 3.430.2.7 Hospit a .3.214721 l .8 2022-09-16 2022-09-18 Inpatient ROLAN Wilson HCACL MEDI.01 [id number] [facility] 05:53:00 12:26:[address] 2021-02-15 2021-02-15 Outpatient KADE Baker CHW [id number] [facility] 08:00:00 08:00:00 [facility] 2020-12-16 2020-12-16 Outpatient KADE Rico CHW [id number] [facility] 10:00:00 10:00:00 [facility] 2020-12-13 2020-12-13 Outpatient KADE Rico CHW [id number] [facility] 13:00:00 13:00:00 [facility] 2020-11-14 2020-11-14 Outpatient Riley PATIÑO [facility] [id number] Univers 15:30:00 15:30:00 [facility] 2020-11-14 2020-11-14 Outpatient GCCOVIDV GCCOVIDV [id number] [facility] 00:00:00 00:00:00 V 2020 2020 Outpatient Riley PATIÑO [facility] [id number] Univers 14:20:00 14:20:00 [facility] 2020-10-09 2020-10-09 Outpatient Riley PATIÑO [facility] [id number] Univers 14:30:00 14:30:00 [facility] 2020-10-09 2020-10-09 Outpatient GCCOVIDV GCCOVIDV [id number] [facility] 00:00:00 00:00:00 V 2018-12-29 2019-01-02 Office [facility] 1.2.840.114 [id number] Univers 09:27:17 08:37:16 Visit MailWriter 350.1.13.10 [facility] 4.2.7.2.686 [facility] [id number] [facility] 2018-12-29 2019-01-02 Office [facility] 1.2.840.114 [id number] 09:27:17 08:37:16 Visit Eliazar [employer] 350.1.13.10 [place] [address] [place] [address] [id number] Primary & 231 Specialty Care 2018-12-30 2018-12-30 Abstract [facility] [id number] Univers 00:00:00 00:00:00 Eliazar HEALTH 350.1.13.10 it y of [place] 4.2.7.2.686 [facility] [id number] Medi jean-claude Primary & 231 Branch Specialty Care 2018-12-30 2018-12-30 Telephone [facility] 1.2.840.114 [id number] Univers 00:00:00 00:00:00 Eliazar HEALTH 350.1.13.10 it y of [place] 4.2.7.2.686 [facility] [id number] Medi [facility] Primary & 231 Branch Specialty Care 2018-12-29 2018-12-29 [facility] [id number] Univers 10:37:32 23:59:00 Encounter Eliazar HEALTH 350.1.13.10 ity of [place] 4.2.7.2.686 [facility] [id number] Medi [facility] Primary & 809 Branch Specialty Care 2018-12-29 2018-12-29 [facility] [id number] Univers 10:35:00 10:36:00 Encounter Eliazar HEALTH 350.1.13.10 ity of [place] 4.2.7.2.686 [facility] [id number] Medi [facility] Primary & 809 Branch Specialty Care Results [...] code = CA) 9.1 mg/dL 8.0-10.5 N [id number] 15:29:00 Test Item Value Reference Range Interpretation Comments ACT-ISTAT (test code 323 SEC 74-137 H Perform ed by certified = ACTI) 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 CREATININE (test 0.9 mg/dL 0.6-1.3 N code = CREAT) CALCIUM (test code = 9.0 mg/dL 8.0-10.5 N CA) CBC W/AUTO [id number] 07:46:00 Test Item Value Reference Range Interpretation [...] (test code NO = MDIFF) BASIC METABOLIC [id number] 14:13:00 Test Item Value Reference Range Interpretation [...] = 9.3 mg/dL 8.0-10.5 N CA) PROTHROMBIN [id number] 14:01:00 Test Item Value Reference Range Interpretation [...] (to prevent recurrent infar ct). CBC W/AUTO [id number] 13:52:00 Test Item Value Reference Range Interpretation [...] NO = MDIFF) - XR CHEST 2 [id number] 00:00:00 [facility] : 1975 Sex: M FAX: Zenaida Nuñez [phone] [place]: St: PRE FAX: Gustavo Downing MD [phone] --------- Name: EDER NARANJO [facility] : 1975 Age/S: 46/M [address] [place] [address] Unit #: [id number] Loc: [place] [address] Phys: Gustavo Fleming MD Acct: [id number] Dis Date: Status: PRE [facility] PHONE #: [phone] Exam Date: 09/15/2022 1410 FAX #: [phone] Reason: PRE OP EXAMS: CPT CODE: [id number] XR CHEST 2 V 42968 PROCEDURE INFORMATION: Exam: XR Chest Exam date [...] spine. IMPRESSION: No acute cardiopulmonary findings at 1425 Reported and signed by: Sebastian Giron M.D. CC: Zenaida Nuñez; Gustavo Fleming MD Technologist: Evy Sol RT(R) Trnscrd Date/Time/By: 09/15/2022 (9984) : By: [email or web address] Print D/T: S: 09/15/2022 (7969) PAGE 1 Signed ReportGLYCOSYLATED HEMOGLOBIN (A1C)2018-12-30 13:33:00 Test Item Value Reference Range Interpretation Comments HGB A1C (test code = 4548-4) 6.0 % 4-6 Lab Interpretation (test code = Normal 00672-5) [facility] [id number] 13:07:00 Test Item Value Reference Range Interpretation Comments HCV Semi-Quantitative (test code = 10577-6) [facility] SURFACE [id number] 13:07:00 Test Item Value Reference Range Interpretation Comments HBsAB (test code = Negative 3647739288) HBsAb mIU/mL Semi-Quantitative (test code = 2241945998) HUONG (test code = Interpretation:?Hepatitis HUONG) B Surface Antibody? ? Negative - Patient is considered to be not immune to infection with HBV.? Positive - Anti-HBs detected at greater than or equal to 12 mIU/mL.?Patient is considered to be immune to infection with HBV.? [facility] (IGM & IGG)2018-12-30 12:58:00 Test Item Value Reference Range Interpretation Comments HBC (test code = 7911300736) Negative HBC Semi-Quantitative (test code = 4624976931) [facility] B SURFACE [id number] 12:21:00 Test Item Value Reference Range Interpretation Comments HBsAg Semi-Quantitative (test code = 5195-3) [facility]ED[facility] [id number] 22:41:00 Test Item Value Reference Range Interpretation Comments ESR (test code = See_Comment H [Automated message] 8102364598) The system [employer] generated this result transmitted ref erence range: 0 - 10 m m/HR. The reference r rubens was not used to interpret this result as normal/abnor mal. Lab Interpretation (test Abnormal code = 91532-7) [facility] [id number] 22:41:00 Test Item Value Reference Range Interpretation Comments ESR (test code = See_Comment H [Automated message] 7456253269) The system [employer] generated this result transmitted ref erence range: 0 - 10 m m/HR. The reference r rubens was not used to interpret this result as normal/abnor mal. Lab Interpretation (test Abnormal code = 37247-1) [facility] [id number] 22:41:00 Test Item Value Reference Range Interpretation Comments ESR (test code = See_Comment H [Automated message] 0753596894) The system [employer] generated this result transmitted ref erence range: 0 - 10 m m/HR. The reference r rubens was not used to interpret this result as normal/abnor mal. Lab Interpretation (test Abnormal code = 24854-2) [facility]. METABOLIC PANEL (08630)2018-12-29 21:43:00 Test Item Value Reference Range Interpretation Comments NA (test code = 138 mmol/L 135-145 1850408278) K (test code = 4.3 mmol/L 3.5-5 3825358363) CL (test code = 99 mmol/L 98-108 1524581222) CO2 TOTAL (test code = 23 mmol/L 23-31 0071543489) AGAP (test code = 2-16 5002661235) BUN (test code = 4 mg/dL 7-23 L 3396778882) GLUCOSE (test code = 142 mg/dL 70-110 H 6418644793) CREATININE (test code = 0.84 mg/dL 0.6-1.25 2538658490) TOTAL BILI (test code = 0.5 mg/dL 0.1-1.8 6313780319) CALCIUM (test code = 9.4 mg/dL 8.6-10.6 6428841980) T PROTEIN (test code = 8.2 g/dL 6.3-8.2 5254082008) ALBUMIN (test code = 4.6 g/dL 3.5-5 3506584635) ALK PHOS (test code = 68 U/L 34-122 7836324760) ALT(SGPT) (test code = 139 U/L 9-51 H 9303176579) AST(SGOT) (test code = 221 U/L 13-40 H 2387437131) eGFR Calculation mL/min/1.73m2 (Non-) (test code = 6337018128) eGFR Calculation mL/min/1.73m2 () (test code = 3768648766) HUONG (test code = HUONG) Association of [...] tests). Lab Interpretation Abnormal (test code = 13613-8) [facility] (60604)(TOTAL CHOLESTEROL, TRIGLYCERIDES, HDL)2018-12-29 21:43:00 Test Item Value Reference Range Interpretation Comments CHOL (test code = 189 mg/dL 120-200 5849118134) HDL (test code = 51 mg/dL >40 7188436161) HDLC RATIO (test code = See_Comment [Au tomated message] 8478773547) The system [employer] generated this result transmit magali reference range : <=5.0. The refe rence range was not u sed to interpret th is result as normal/abnormal . TRIG (test code = 132 mg/dL 30-170 4431284639) LDL CHOL (test code = 112 mg/dL See_Comment [Auto mated message] 35854-0) The system [employer] generated this result transmit magali reference range : <=160. The refe rence range was not u sed to interpret th is result as normal/abnormal . VLDL (test code = 26 mg/dL 5-60 1126568725) Lab Interpretation (test Normal code = 34629-0) [facility]. METABOLIC PANEL (18360)2018-12-29 21:43:00 Test Item Value Reference Range Interpretation Comments NA (test code = 138 mmol/L 135-145 9334472279) K (test code = 4.3 mmol/L 3.5-5 6138781051) CL (test code = 99 mmol/L 98-108 6873976673) CO2 TOTAL (test code = 23 mmol/L 23-31 7749894510) AGAP (test code = 2-16 3602355644) BUN (test code = 4 mg/dL 7-23 L 3892514304) GLUCOSE (test code = 142 mg/dL 70-110 H 1836086987) CREATININE (test code = 0.84 mg/dL 0.6-1.25 3051554977) TOTAL BILI (test code = 0.5 mg/dL 0.1-1.8 9032426924) CALCIUM (test code = 9.4 mg/dL 8.6-10.6 7957499274) T PROTEIN (test code = 8.2 g/dL 6.3-8.2 5819469828) ALBUMIN (test code = 4.6 g/dL 3.5-5 3666458104) ALK PHOS (test code = 68 U/L 34-122 [id number]) ALT(SGPT) (test code = 139 U/L 9-51 H 4737648974) AST(SGOT) (test code = 221 U/L 13-40 H 4375520964) eGFR Calculation mL/min/1.73m2 (Non-) (test code = 8027673490) eGFR Calculation mL/min/1.73m2 () (test code = 8682608855) HUONG (test code = HUONG) Association of [...] tests). Lab Interpretation Abnormal (test code = 14086-6) [facility]TOTAL CHOLESTEROL, TRIGLYCERIDES, HDL)2018-12-29 21:43:00 Test Item Value Reference Range Interpretation Comments CHOL (test code = 189 mg/dL 120-200 9708872031) HDL (test code = 51 mg/dL >40 2919492921) HDLC RATIO (test code = See_Comment [Au tomated message] 2703738851) The system [employer] generated this result transmit magali reference range : <=5.0. The refe rence range was not u sed to interpret th is result as normal/abnormal . TRIG (test code = 132 mg/dL 30-170 2544950441) LDL CHOL (test code = 112 mg/dL See_Comment [Auto mated message] 15277-2) The system [employer] generated this result transmit magali reference range : <=160. The refe rence range was not u sed to interpret th is result as normal/abnormal . VLDL (test code = 26 mg/dL 5-60 3955710195) Lab Interpretation (test Normal code = 95447-3) [facility] (92226[facility]2018-12-29 21:43:00 Test Item Value Reference Range Interpretation Comments NA (test code = 138 mmol/L 135-145 6632979633) K (test code = 4.3 mmol/L 3.5-5 6799276303) CL (test code = 99 mmol/L 98-108 3453593168) CO2 TOTAL (test code = 23 mmol/L 23-31 3846535943) AGAP (test code = 2-16 5256935609) BUN (test code = 4 mg/dL 7-23 L 7190076623) GLUCOSE (test code = 142 mg/dL 70-110 H 0862346376) CREATININE (test code = 0.84 mg/dL 0.6-1.25 6479191887) TOTAL BILI (test code = 0.5 mg/dL 0.1-1.4 1473863147) CALCIUM (test code = 9.4 mg/dL 8.6-10.6 6083373906) T PROTEIN (test code = 8.2 g/dL 6.3-8.2 0564599632) ALBUMIN (test code = 4.6 g/dL 3.5-5 2793885738) ALK PHOS (test code = 68 U/L 34-122 8856069873) ALT(SGPT) (test code = 139 U/L 9-51 H 5924474610) AST(SGOT) (test code = 221 U/L 13-40 H 2259868907) eGFR Calculation mL/min/1.73m2 (Non-) (test code = 2570839000) eGFR Calculation mL/min/1.73m2 () (test code = 2021936427) HUONG (test code = HUONG) Association of [...] tests). Lab Interpretation Abnormal (test code = 10399-6) [facility]74906)(TOTAL CHOLESTEROL, TRIGLYCERIDES, HDL)2018-12-29 21:43:00 Test Item Value Reference Range Interpretation Comments CHOL (test code = 189 mg/dL 120-200 2672549006) HDL (test code = 51 mg/dL >40 7595575228) HDLC RATIO (test code = See_Comment [Au tomated message] 3942531365) The system [employer] generated this result transmit magali reference range : <=5.0. The refe rence range was not u sed to interpret th is result as normal/abnormal . TRIG (test code = 132 mg/dL 30-170 3478698568) LDL CHOL (test code = 112 mg/dL See_Comment [Auto mated message] 69674-8) The system [employer] generated this result transmit magali reference range : <=160. The refe rence range was not u sed to interpret th is result as normal/abnormal . VLDL (test code = 26 mg/dL 5-60 2278777765) Lab Interpretation (test Normal code = 64566-8) [facility] Test Item Value Reference Range Interpretation Comments APPEARANCE (test code = Hazy Clear A 8702262360) COLOR (test code = Yellow Yellow 1610056722) PH (test code = 4.8-8.0 5878945418) SP GRAVITY (test code = 1.003-1.030 7103258639) GLU U QUAL (test code = Normal Normal 4276939174) BLOOD (test code = Negative Negative 9694813582) KETONES (test code = Negative Negative 1556919814) PROTEIN (test code = Negative Negative 2887-8) UROBILIN (test code = Normal Normal 0715053246) BILIRUBIN (test code = Negative Negative 4312355119) NITRITE (test code = Negative Negative 5902547595) LEUK ALANA (test code = Negative Negative 6369966578) RBC/HPF (test code = <1 See_Comment [Autom ated message] 2686297158) The system [employer] generated this result transmitted ref erence range: 0 - 3 HP F. The reference range was not used to int erpret this result as normal/abnormal . WBC/HPF (test code = See_Comment [Autom ated message] 6663494553) The system [employer] generated this result transmitted ref erence range: 0 - 5 HP F. The reference range was not used to int erpret this result as normal/abnormal . BACTERIA (test code = Negative Negative 4722720338) MUCOUS (test code = Slight Negative LPF A 6293646352) SQ EPITH (test code = <1 See_Comment [Auto mated message] 4131495930) The system [employer] generated this result transmitted ref erence range: <=2 HPF. The reference range was not used to int erpret this result as normal/abnormal . Lab Interpretation (test Abnormal code = 67793-1) [facility] Test Item Value Reference Range Interpretation Comments APPEARANCE (test code = Hazy Clear A 6457187675) COLOR (test code = Yellow Yellow 9748584469) PH (test code = 4.8-8.0 3781900326) SP GRAVITY (test code = 1.003-1.030 3391040999) GLU U QUAL (test code = Normal Normal 8534257299) BLOOD (test code = Negative Negative 2942889130) KETONES (test code = Negative Negative 7187738546) PROTEIN (test code = Negative Negative 2887-8) UROBILIN (test code = Normal Normal 1973839611) BILIRUBIN (test code = Negative Negative 6670247985) NITRITE (test code = Negative Negative 9055256343) LEUK ALANA (test code = Negative Negative 7099053219) RBC/HPF (test code = <1 See_Comment [Autom ated message] 5582552381) The system [employer] generated this result transmitted ref erence range: 0 - 3 HP F. The reference range was not used to int erpret this result as normal/abnormal . WBC/HPF (test code = See_Comment [Autom ated message] 1503277113) The system [employer] generated this result transmitted ref erence range: 0 - 5 HP F. The reference range was not used to int erpret this result as normal/abnormal . BACTERIA (test code = Negative Negative 8429995433) MUCOUS (test code = Slight Negative LPF A 9914412301) SQ EPITH (test code = <1 See_Comment [Auto mated message] 3470230044) The system [employer] generated this result transmitted ref erence range: <=2 HPF. The reference range was not used to int erpret this result as normal/abnormal . Lab Interpretation (test Abnormal code = 51594-0) [facility] Test Item Value Reference Range Interpretation Comments APPEARANCE (test code = Hazy Clear A 5385987307) COLOR (test code = Yellow Yellow 4499448961) PH (test code = 4.8-8.0 0658421541) SP GRAVITY (test code = 1.003-1.030 3058995039) GLU U QUAL (test code = Normal Normal 6356049078) BLOOD (test code = Negative Negative 9836819267) KETONES (test code = Negative Negative 1713482338) PROTEIN (test code = Negative Negative 2887-8) UROBILIN (test code = Normal Normal 4382457603) BILIRUBIN (test code = Negative Negative 9304416909) NITRITE (test code = Negative Negative 8538861508) LEUK ALANA (test code = Negative Negative 6087923054) RBC/HPF (test code = <1 See_Comment [Autom ated message] 8151819673) The system [employer] generated this result transmitted ref erence range: 0 - 3 HP F. The reference range was not used to int erpret this result as normal/abnormal . WBC/HPF (test code = See_Comment [Autom ated message] 9685959847) The system [employer] generated this result transmitted ref erence range: 0 - 5 HP F. The reference range was not used to int erpret this result as normal/abnormal . BACTERIA (test code = Negative Negative 0020110798) MUCOUS (test code = Slight Negative LPF A 9292376969) SQ EPITH (test code = <1 See_Comment [Auto mated message] 5205641192) The system [employer] generated this result transmitted ref erence range: <=2 HPF. The reference range was not used to int erpret this result as normal/abnormal . Lab Interpretation (test Abnormal code = 43852-1) [facility] WITH [id number] 21:31:00 Test Item Value Reference Range Interpretation [...] (test code = 53.0 fL 38.5-51.6 H 01792-9) RDW-CV (test code = 19.6 % 12.1-15.4 H 788-0) PLT (test code = See_Comment [Automated 777-3) message] The sy stem which generated this result transmitted reference range : 150 - 328 10*3/ ?L. The reference r rubens was not used to interpret this result as normal/abnormal . MPV (test code = 10.5 fL 9.8-13 09186-4) NRBC/100 WBC (test See_Comment [Automat ed code = 0714448895) message] The system which generated this result transmitted reference range : 0.0 - 10.0 /100 WBCs. The refer ence range was not u sed to interpret th is result as normal/abnormal . NRBC x10^3 (test code <0.01 See_Comment [Auto mated = 4170468540) message] The s ystem which generated this result transmitted reference range : 10*3/?L. The reference range was not used to interpret this result as normal/abnormal . GRAN MAT (NEUT) % 60.6 % (test code = 770-8) IMM GRAN % (test code 0.70 % = 4005497012) LYMPH % (test code = 28.3 % 736-9) MONO % (test code = 5.7 % 5905-5) EOS % (test code = 3.9 % 713-8) BASO % (test code = 0.8 % 706-2) GRAN MAT x10^3(ANC) 4.48 10*3/uL 1.99-6.95 (test code = 0186999473) IMM GRAN x10^3 (test 0.05 10*3/uL 0-0.06 code = 4190830821) LYMPH x10^3 (test code 2.09 10*3/uL 1.09-3.23 = 731-0) MONO x10^3 (test code 0.42 10*3/uL 0.36-1.02 = 742-7) EOS x10^3 (test code = 0.29 10*3/uL 0.06-0.53 711-2) BASO x10^3 (test code 0.06 10*3/uL 0.01-0.09 = 704-7) Lab Interpretation Abnormal (test code = 73997-1) [facility] WITH [id number] 21:31:00 Test Item Value Reference Range Interpretation Comments WBC (test code = See_Comment [Automated 9661-2) message] The sy stem which generated this result transmitted reference range : 4.20 - 10.70 10*3/?L. The reference range was not used to interpret this result as normal/abnormal . RBC (test code = See_Comment [Automated 317-8) message] The sy stem which generated this [...] (test code = 53.0 fL 38.5-51.6 H 66774-9) RDW-CV (test code = 19.6 % 12.1-15.4 H 788-0) PLT (test code = See_Comment [Automated 777-3) message] The sy stem which generated this result transmitted reference range : 150 - 328 10*3/ ?L. The reference r rubens was not used to interpret this result as normal/abnormal . MPV (test code = 10.5 fL 9.8-13 26652-1) NRBC/100 WBC (test See_Comment [Automat ed code = 8650027673) message] The system which generated this result transmitted reference range : 0.0 - 10.0 /100 WBCs. The refer ence range was not u sed to interpret th is result as normal/abnormal . NRBC x10^3 (test code <0.01 See_Comment [Auto mated = 0014449809) message] The s ystem which generated this result transmitted reference range : 10*3/?L. The reference range was not used to interpret this result as normal/abnormal . GRAN MAT (NEUT) % 60.6 % (test code = 770-8) IMM GRAN % (test code 0.70 % = 1507942231) LYMPH % (test code = 28.3 % 736-9) MONO % (test code = 5.7 % 5905-5) EOS % (test code = 3.9 % 713-8) BASO % (test code = 0.8 % 706-2) GRAN MAT x10^3(ANC) 4.48 10*3/uL 1.99-6.95 (test code = 9124858267) IMM GRAN x10^3 (test 0.05 10*3/uL 0-0.06 code = 2778479855) LYMPH x10^3 (test code 2.09 10*3/uL 1.09-3.23 = 731-0) MONO x10^3 (test code 0.42 10*3/uL 0.36-1.02 = 742-7) EOS x10^3 (test code = 0.29 10*3/uL 0.06-0.53 711-2) BASO x10^3 (test code 0.06 10*3/uL 0.01-0.09 = 704-7) Lab Interpretation Abnormal (test code = 86550-8) [facility] WITH [id number] 21:31:00 Test Item Value Reference Range Interpretation Comments WBC (test code = See_Comment [Automated 0590-2) message] The sy stem which generated this [...] (test code = 53.0 fL 38.5-51.6 H 15765-6) RDW-CV (test code = 19.6 % 12.1-15.4 H 788-0) PLT (test code = See_Comment [Automated 777-3) message] The sy stem which generated this result transmitted reference range : 150 - 328 10*3/ ?L. The reference r rubens was not used to interpret this result as normal/abnormal . MPV (test code = 10.5 fL 9.8-13 26952-0) NRBC/100 WBC (test See_Comment [Automat ed code = 8171580770) message] The system which generated this result transmitted reference range : 0.0 - 10.0 /100 WBCs. The refer ence range was not u sed to interpret th is result as normal/abnormal . NRBC x10^3 (test code <0.01 See_Comment [Auto mated = 0656659539) message] The s [employer] which generated this result transmitted reference range : 10*3/?L. The reference range was not used to interpret this result as normal/abnormal . GRAN MAT (NEUT) % 60.6 % (test code = 770-8) IMM GRAN % (test code 0.70 % = 5652848843) LYMPH % (test code = 28.3 % 736-9) MONO % (test code = 5.7 % 5905-5) EOS % (test code = 3.9 % 713-8) BASO % (test code = 0.8 % 706-2) GRAN MAT x10^3(ANC) 4.48 10*3/uL 1.99-6.95 (test code = 2417682408) IMM GRAN x10^3 (test 0.05 10*3/uL 0-0.06 code = 5203049093) LYMPH x10^3 (test code 2.09 10*3/uL 1.09-3.23 = 731-0) MONO x10^3 (test code 0.42 10*3/uL 0.36-1.02 = 742-7) EOS x10^3 (test code = 0.29 10*3/uL 0.06-0.53 711-2) BASO x10^3 (test code 0.06 10*3/uL 0.01-0.09 = 704-7) Lab Interpretation Abnormal (test code = 70576-3) [facility] [id number] 16:29:00* * * * * * * [...] 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 FINDINGS: The heart and great vessels are normal and the lungs are well expanded andclear. Theneck is partially fused. [facility], Radiant Results Inft User - 12/29/2018 11:04 AM CDT* * * * * * * * ORIGINAL REPORT * * * * * * * *EXAM: XR CHEST 2 VWHISTORY: Midback pain COMPARISON: None.FINDINGS:The heart and great vessels are normal and the lungs are well expanded andclear. The neck is partially fused.[facility]"
[2023-04-17 19:18] LABS: SARS-CoV-2 Antigen Rapid Res Negative (Negative)
[2023-04-17 19:19] LABS: Hematocrit 39.1 % (39.6-49.0); Lymphocytes % 12.3 % (15.3-44.8); MCV 89.2 fL (80-100); MPV 7.3 fL (7.6-11.3); Platelets 217 thou/uL (152-406); RBC Red Blood Cell Count 4.39 M/uL (4.33-5.43)
[2023-04-17 19:24] LABS: Specific Gravity 1.006 (1.005-1.030); Urine Bilirubin NEGATIVE (Negative); Urine Blood Negative (Negative); Urine Clarity Clear (Clear); Urine Color Light-Yellow (Yellow); Urine Glucose 3+ (Negative); Urine Protein NEGATIVE (Negative); Urine Urobilinogen Normal (Normal)
[2023-04-17] MEDS ORDERED: NA CHLORIDE 0.9% 1,000 ML ONE (19:30)
--- NOTE | 2023-04-17 19:44 | RAD REPORT ---
EXAM DESCRIPTION: CT - Abdomen Pelvis W Contrast - 04/17/2023 7:23 pm CLINICAL HISTORY: ABD PAIN COMPARISON: Abdomen Pelvis W Contrast dated 09/06/2022 TECHNIQUE: Thin cut axial CT imaging of the abdomen and pelvis was performed following intravenous a dministration of 100 mL Isovue 300. Multiplanar reformats were generated and reviewed. All CT scans are performed using dose optimization technique as appropriate and may include automated exposure control or mA/KV adjustment according to patient size. FINDINGS: No suspicious findings in the lung bases. The liver, spleen, and pancreas show no suspicious findings. Right adrenal 1.8 cm nodule, stable. Gal lbladder and biliary tree are also without suspicious finding. Symmetric renal function is seen with no hydronephrosis or suspicious renal mass. Sequelae of gastric bypass. No dilated bowel loops or bowel wall thickening. No free air, free fluid or inflammatory stranding. No hernia, mass or bulky lymphadenopathy. The urinary bladder is suboptima lly distended limiting evaluation. No suspicious bony findings. IMPRESSION: No acute intra-abdominal process. Stable incidental findings as above
[2023-04-17 20:23] LABS: Albumin 2.7 g/dL (3.4-5.0); Bilirubin Total 0.7 mg/dL (0.2-1.0); Potassium 3.9 mEq/L (3.5-5.1); Protein, Total 6.6 g/dL (6.4-8.2)
--- NOTE | 2023-04-17 21:36 | RAD REPORT ---
EXAM DESCRIPTION: US - Liver Only - 04/17/2023 9:17 pm CLINICAL HISTORY: Elevated LFTs COMPARISON: No comparisons TECHNIQUE: Sonographic grayscale and color flow images of the upper abdomen were obtained. FINDINGS: Liver is enlarged measuring 21.7 cm in long axis. It demonstrates heterogeneous echotextur e and diffusely increased echogenicity. No focal lesions, although the degree of coarsening and hyper echogenicity limits penetration. Hepatopetal flow appreciated in the main portal vein. The liver demonstrates no findings of intrahepatic biliary dilatation. Spleen is normal in size, measuring 8.2 centimeter in long axis. IMPRESSION: Hepatomegaly with parenchymal heterogeneity and increased echogenicity suggesting medica l hepatocellular disease. Spleen is normal in appearance.
--- NOTE | 2023-04-17 22:10 | EDPHYS ---
Physician Documentation [facility] Name: Estuardo Power Age: 47 yrs Sex: Male : 1975 Arrival Date: 04/17/2023 Time: 18:26 Bed 7 Private MD: ED Physician Raul Hutchison HPI: 04/17 18:56 This 47 yrs old Male presents to ER via Ambulatory with complaints of sb4 Shortness Of Breath, Diarrhea, Nausea, High Blood Pressure. 18:56 patient presents with complaints of diarrhea, generalized weakness, and intermittent sb4 shortness of breath. he states he was seen here last night for chest pain and had a negative work up. he states he still feels poorly. he has been trying to stay hydrated but states that he is having constant diarrhea. he denies any abdominal pain, vomiting, fever, chills, chest pain. Historical: - Allergies: 18:37 No Known Allergies; ll1 - PMHx: 18:37 Myocardial infarction; ll1 - PSHx: 18:37 cardiac stent; Gastric Bypass; neck; ll1 - Immunization history:: Adult Immunizations up to date. - Social history:: Smoking status: Patient reports the use of cigarette tobacco products, denies chronic smoking, but will smoke occasionally. ROS: 18:56 Cardiovascular: Negative for chest pain, palpitations, and edema, sb4 18:56 Constitutional: Positive for malaise, 18:56 Respiratory: Positive for shortness of breath, 18:56 Abdomen/GI: Positive for nausea, diarrhea, Exam: 18:56 Constitutional: This is a well developed, well nourished patient who is awake, alert, sb4 and in no acute distress. Head/Face: Normocephalic, atraumatic. Eyes: Extra-ocular motions intact. Periorbital areas with no swelling, redness, or edema. ENT: Mucous membranes moist. Cardiovascular: Regular rate and rhythm with a normal S1 and S2. Respiratory: Lungs have equal breath sounds bilaterally, clear to auscultation and percussion. No rales, rhonchi or wheezes noted. No increased work of breathing, no retractions or nasal flaring. Abdomen/GI: Soft, non-tender, no distension. Skin: Warm, dry with normal turgor. Normal color with no rashes, no lesions, and no evidence of cellulitis. MS/ Extremity: Pulses equal, no cyanosis. Neurovascular intact. Full, normal range of motion. Vital Signs: 18:38 BP 142 / 101; Pulse 112; Resp 18; Temp 97.7; Pulse Ox 100% ; Weight 108.86 kg; Height 5 ll1 ft. 10 in. ; Pain 0/10; 19:49 BP 131 / 89; Pulse 91; Resp 18; Temp 98; Pulse Ox 100% on R/A; rv 20:58 BP 147 / 98; Pulse 76; Resp 18 S; Pulse Ox 99% on R/A; as6 22:12 BP 137 / 91; Pulse 88; Resp 18 S; Pulse Ox 100% on R/A; as6 23:17 BP 142 / 90; Pulse 80; Resp 19 S; Pulse Ox 97% on R/A; as6 18:38 Body Mass Index 34.44 (108.86 kg, 177.8 cm) ll1 18:38 Pain Scale: Adult ll1 Abbey Coma Score: 19:49 Eye Response: spontaneous(4). Motor Response: obeys commands(6). Verbal Response: rv oriented(5). Total: 15. MDM: 18:43 Patient medically screened. sb4 18:56 Differential diagnosis: covid, flu, colitis, gastroenteritis, diverticulitis. sb4 20:30 Transition of care: Care assumed from Evelyne Rajput PA-C. ms3 22:48 Data reviewed: vital signs, nurses notes, and as a result, I will admit patient. ms3 Consideration of Admission/Observation Patient was admitted/placed on observation. Management of patient was discussed with the following: Hospitalist: Dr Sands. I considered the following discharge prescriptions or medication management in the emergency department Medications were administered in the Emergency Department. See MAR. Care significantly affected by the following chronic conditions: MS. Counseling: I had a detailed discussion with the patient and/or guardian regarding the historical points, exam findings, and any diagnostic results supporting the discharge/admit diagnosis, lab results, radiology results, the need for further work-up and treatment in the hospital. ED course: Discussed case with Dr Sands and he accepts patient. All questions answered.. 04/17 18:38 Order name: Troponin HS; Complete Time: 19:29 snw 04/17 18:38 Order name: Flu; Complete Time: 19:25 w 04/17 18:38 Order name: SARS RAPID; Complete Time: 19:24 [facility] 04/17 18:51 Order name: CBC with Diff; Complete Time: 19:24 [facility] 04/17 18:51 Order name: CMP; Complete Time: 20:36 [facility] 04/17 18:51 Order name: Lipase; Complete Time: 20:36 [facility] 04/17 18:51 Order name: Urinalysis w/ reflexes [facility] 04/17 18:51 Order name: Lactate w/ 2H reflex if indic.; Complete Time: 19:54 [facility] 04/17 18:51 Order name: CK; Complete Time: 20:36 [facility] 04/17 22:11 Order name: Lactate Sepsis 2 HR Follow-up; Complete Time: 14:59 [facility] 04/17 22:39 Order name: Acute Hepatitis Panel [facility] 04/17 22:39 Order name: Acute Hepatitis Panel [facility] 04/17 22:39 Order name: CBC with Automated Diff [facility] 04/17 22:39 Order name: CBC with Automated Diff; Complete Time: 14:59 [facility] 04/17 22:39 Order name: Comprehensive Metabolic Panel [facility] 04/17 22:39 Order name: Comprehensive Metabolic Panel; Complete Time: 14:59 [facility] 04/17 22:39 Order name: Lipid Profile [facility] 04/17 22:39 Order name: Lipid Profile; Complete Time: 14:59 [facility] 04/17 22:39 Order name: Protime (+INR) EDUT 04/17 22:39 Order name: Protime (+INR); Complete Time: 14:59 [facility] 04/17 22:39 Order name: PTT, Activated Partial Thromb EDUT 04/17 22:39 Order name: PTT, Activated Partial Thromb; Complete Time: 14:59 [facility] 04/17 18:51 Order name: CT Abd/Pelvis - IV Contrast Only; Complete Time: 19:54 [facility] 04/17 20:44 Order name: US Liver Only; Complete Time: 21:[address] [facility] 04/17 18:38 Order name: EKG; Complete Time: 18:39 [facility] 04/17 18:38 Order name: EKG - Nurse/Tech; Complete Time: 19:14 [facility] 04/17 18:51 Order name: IV Saline Lock; Complete Time: 19:14 [facility] 04/17 18:51 Order name: Labs collected and sent; Complete Time: 19:14 sb4 EC:06 Rate is 110 beats/min. Rhythm is regular, Sinus tachycardia. MT interval is normal at sb4 144 msec. QRS interval is normal at 68 msec. QT interval is normal at 435 msec. No Q waves. T waves are Normal. No ST changes noted. Clinical impression: Sinus tachycardia and No evidence of ischemia. Interpreted by me. Reviewed by me. Administered Medications: :14 Drug: NS 0.9% IV 1000 ml IV at 1 bolus Per protocol; 1000 mL bolus Route: IV; Rate: 1 rv bolus; Site: left forearm; 22:13 Follow up: Response: No adverse reaction; IV Status: Completed infusion; IV Intake: as6 1000ml Disposition: 22:50 Co-signature as Attending Physician, Raul Hutchison DO. ms3 04/18 14:59 Chart complete. sb4 Disposition Summary: 04/17/23 22:09 Hospitalization Ordered Notes: Hospitalization Status: Observation ms3 Provider: Gemini Sands ms3 Location: Telemetry/MedSurg (observation) ms3 Condition: Stable ms3 Problem: new ms3 Symptoms: are unchanged ms3 Bed/Room Type: Standard ms3 Room Assignment: 407(04/17/23 23:16) eb1 Diagnosis - Nonspecific elevation of levels of transaminase and lactic acid dehydrogenase [LDH] ms3 - Diarrhea, unspecified ms3 - Elevated blood-pressure reading, without diagnosis of hypertension ms3 Forms: - Medication Reconciliation Form ms3 - SBAR form ms3 - Leadership Thank You Letter ms3 Signatures: Dispatcher [employer] EDYajaira Mcdaniel FNP-Jessica MACHINE HOSTLER-Urvashi Watkins RN RN eb1 Adarsh Portillo RN RN rv Lewis, Lynsay, RN RN ll1 Raul Hutchison DO DO ms3 Evelyne Rajput PA-C PA-C sb4 Ariel Reza RN as6 Corrections: (The following items were deleted from the chart) 04/17 22:50 22:50 Co-signature as Attending PhysicianRaul DO ms3 ms3 23:16 22:09 ms3 eb1
--- NOTE | 2023-04-17 22:10 | ER ---
Nurse's Notes [facility] Name: Estuardo Power Age: 47 yrs Sex: Male : 1975 Arrival Date: 04/17/2023 Time: 18:26 Bed 7 Private MD: Diagnosis: Nonspecific elevation of levels of transaminase and lactic acid dehydrogenase [LDH];Diarrhea, unspecified;Elevated blood-pressure reading, without diagnosis of hypertension Presentation: 04/17 18:38 Chief complaint: Patient states: Here last night. still SOB, diarrhea, nausea, BP high ll1 today. Coronavirus screen: Vaccine status: Patient reports receiving the 2nd dose of the covid vaccine. Client denies travel out of the [place] in the last 14 days. At this time, the client does not indicate any symptoms associated with coronavirus-19. Ebola Screen: Patient denies travel to an Ebola-affected area in the 21 days before illness onset. Initial Sepsis Screen: Does the patient meet any 2 criteria? No. Patient's initial sepsis screen is negative. Does the patient have a suspected source of infection? No. Patient's initial sepsis screen is negative. Risk Assessment: Do you want to hurt yourself or someone else? Patient reports no desire to harm self or others. Onset of symptoms was April 16, 2023. 18:38 Method Of Arrival: Ambulatory ll1 18:38 Acuity: JOSIAS 3 ll1 Triage Assessment: 18:38 General: Appears uncomfortable, Behavior is calm, cooperative, appropriate for age, ll1 Reports high BP. Cardiovascular: Reports nausea, high BP. Respiratory: Reports shortness of breath Onset: The symptoms/episode began/occurred yesterday, the patient has mild shortness of breath. GI: Reports diarrhea, nausea. Historical: - Allergies: 18:37 No Known Allergies; ll1 - PMHx: 18:37 Myocardial infarction; ll1 - PSHx: 18:37 cardiac stent; Gastric Bypass; neck; ll1 - Immunization history:: Adult Immunizations up to date. - Social history:: Smoking status: Patient reports the use of cigarette tobacco products, denies chronic smoking, but will smoke occasionally. Screenin:[facility] ED Fall Risk Assessment (Adult) History of falling in the last 3 months, rv including since admission No falls in past 3 months (0 pts) Score/Fall Risk Level 0 - 2 = Low Risk Oriented to surroundings, Maintained a safe environment, Educated pt \T\ family on fall prevention, incl call for assistance when getting out of bed, Assessed \T\ reinforced patient's understanding of fall precautions, Provided non-skid footwear, Hourly rounding (assess needs \T\ fall precautionary measures) done, Used ambulatory aids as needed (educated on \T\ assisted with), Used gait belt as appropriate. Abuse screen: Denies threats or abuse. Denies injuries from another. Nutritional screening: No deficits noted. Tuberculosis screening: No symptoms or risk factors identified. Assessment: 23:23 Reassessment: Patient appears in no apparent distress at this time. Patient and/or as6 family updated on plan of care and expected duration. Pain level reassessed. Patient is alert, oriented x 3, equal unlabored respirations, skin warm/dry/pink. Vital Signs: 18:38 BP 142 / 101; Pulse 112; Resp 18; Temp 97.7; Pulse Ox 100% ; Weight 108.86 kg; Height 5 ll1 ft. 10 in. ; Pain 0/10; 19:49 BP 131 / 89; Pulse 91; Resp 18; Temp 98; Pulse Ox 100% on R/A; rv 20:58 BP 147 / 98; Pulse 76; Resp 18 S; Pulse Ox 99% on R/A; as6 22:12 BP 137 / 91; Pulse 88; Resp 18 S; Pulse Ox 100% on R/A; as6 23:17 BP 142 / 90; Pulse 80; Resp 19 S; Pulse Ox 97% on R/A; as6 18:38 Body Mass Index 34.44 (108.86 kg, 177.8 cm) ll1 18:38 Pain Scale: Adult ll1 [place] Coma Score: 19:49 Eye Response: spontaneous(4). Motor Response: obeys commands(6). Verbal Response: rv oriented(5). Total: 15. ED Course: 18:29 Patient arrived in ED. im 18:39 Triage completed. ll1 18:39 Arm band placed on Patient placed in an exam room, on a stretcher. ll1 18:43 [facility]put [facility]C [facility] sb4 18:43 Kehinde Zazueta MD is Attending Physician. sb4 19:14 Bandar, Adarsh, RN is Primary Nurse. rv 19:24 CT Abd/Pelvis - IV Contrast Only In Process Unspecified. EDMS 19:30 Inserted saline lock: 20 gauge in left forearm, using aseptic technique. Blood rv collected. 20:43 Attending Physician role handed off by Kehinde Zazueta MD ms3 20:43 Raul Hutchison DO is Attending Physician. ms3 21:19 US Liver Only In Process Unspecified. EDMS 22:09 Gemini Sands MD is Hospitalizing Provider. ms3 22:12 Bed in low position. Call light in reach. Side rails up X 1. as6 22:13 Provided Education on: need for admit. as6 22:13 No provider procedures requiring assistance completed. Patient admitted, IV remains in as6 place. Administered Medications: 19:14 Drug: NS 0.9% IV 1000 ml IV at 1 bolus Per protocol; 1000 mL bolus Route: IV; Rate: 1 rv bolus; Site: left forearm; 22:13 Follow up: Response: No adverse reaction; IV Status: Completed infusion; IV Intake: as6 1000ml Medication: 22:12 VIS not applicable for this client. as6 Intake: 22:13 IV: 1000ml; Total: 1000ml. as6 Outcome: 22:09 Decision to Hospitalize by Provider. ms3 22:13 Condition: stable as6 22:13 Instructed on the need for admit, 23:23 Admitted to Tele accompanied by nurse, via wheelchair, room 407, with chart, Report as6 called to Mishel JAVIER 23:24 Patient left the ED. as6 Signatures: Dispatcher [employer] EDFL Adarsh Portillo, RN RN Jose De Jesus Hughes RN RN ll1 Raul Hutchison DO DO ms3 Ariel Reza RN RN as6 Evelyne Rajput, PAAmaris PAQuangC sher4 Melinda Valero
[2023-04-17] MEDS ORDERED: ONDANSETRON 4 MG/2 ML VIAL IV PRN (22:35)
[2023-04-17] MEDS ORDERED: MORPHINE 2 MG/ML SYR IV PRN (22:35)
--- NOTE | 2023-04-17 22:39 | P.HP ---
Certification for Inpatient Patient admitted to: Inpatient With expected LOS: >2 Midnights Patient will require the following post-hospital care: None Practitioner: I am a practitioner with admitting privileges, knowledge of patient current condition, hospital course, and medical plan of care. Services: Services provided to patient in accordance with Admission requirements found in Title 42 Section 412.3 of the Code of Federal Regulations Patient History Allergies No Known Allergies Allergy (Unverified 09/06/22 13:32) Home Medications: Aspirin [Aspirin EC 81 MG] 162 mg PO DAILY #60 tab 09/11/22 Atorvastatin Calcium [Lipitor] 40 mg PO BEDTIME #30 tab 09/11/22 Famotidine [Pepcid] 20 mg PO DAILY #30 tab 09/11/22 Metoprolol Tartrate [Lopressor*] 12.5 mg PO BID 6AM 6PM #30 tab 09/11/22 Ticagrelor [Brilinta*] 90 mg PO BID #60 tab 09/11/22 - Past Medical/Surgical History Diabetic: No -: Alcohol use -: Tobacco use -: PUD -: Neck surgery/cervical fusion -: Gastric bypass Psychosocial/ Personal History: 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, lives at home with his family - Family History Father Medical History: Heart disease, Hypertension, Diabetes Mother Medical History: Hypertension, Diabetes - Social History Alcohol use: Yes CD- Drugs: No Caffeine use: Yes Physical Examination - Studies Laboratory Data (last 24 hrs) 04/17/23 04/17/23 19:10 19:10 WBC 8.30 Hgb 13.0 L D Hct 39.1 L Plt Count 217 Sodium 131 L Potassium 3.9 BUN 16 Creatinine 1.28 Glucose 200 H Total Bilirubin 0.7 AST 507 H ALT 269 H Alkaline Phosphatase 132 H Lipase 37 Microbiology Data (last 24 hrs): 04/17/23 18:57 Nasopharnyx Influenza Type A Antigen Screen - Final 04/17/23 18:57 Nasopharnyx Influenza Type B Antigen Screen - Final Assessment & Plan - Advance Directives Does patient have a Living Will: No Does patient have a Durable POA for Healthcare: No
[2023-04-17 23:43] VITALS: BMI 34.4
[2023-04-18] MEDS: NA CHLORIDE 0.9% 1,000 ML IV SCH ×3 (00:24→17:25)
[2023-04-18] MEDS: TICAGRELOR 90 MG TABLET PO SCH ×3 (01:31→21:26)
[2023-04-18] MEDS: METOPROLOL TAR 25 MG TAB PO SCH ×3 (01:31→21:26)
[2023-04-18 04:57] LABS: Absolute Lymphocytes (CBC) 1.3 K/uL (0.7-4.9); Hematocrit 34.4 % (39.6-49.0); Lymphocytes % 21.8 % (15.3-44.8); MCV 89.1 fL (80-100); MPV 7.8 fL (7.6-11.3); Platelets 196 thou/uL (152-406); RBC Red Blood Cell Count 3.86 M/uL (4.33-5.43)
[2023-04-18 05:02] LABS: Protime INR 0.93
[2023-04-18 05:18] LABS: ALT/SGPT 224 U/L (16-61); AST/SGOT 358 U/L (15-37); Albumin 2.5 g/dL (3.4-5.0); Alkaline Phosphatase 117 U/L (45-117); BUN Blood Urea Nitrogen 12 mg/dL (7-18); Bicarbonate 23 mEq/L (21-32); Bilirubin Total 1.2 mg/dL (0.2-1.0); Glomerular Filtration Rate 86 ml/min (=/>90); Glucose Level 129 mg/dL (74-106); HDL Cholesterol 17 mg/dL (40-60); Potassium 3.7 mEq/L (3.5-5.1); Sodium Level 136 mEq/L (136-145)
[2023-04-18 05:30] LABS: LDL, Direct 22 mg/dL (100-129)
[2023-04-18] MEDS ORDERED: METOPROLOL TAR 25 MG TAB PO SCH (09:00)
[2023-04-18] MEDS ORDERED: TICAGRELOR 90 MG TABLET PO SCH (09:00)
[2023-04-18] MEDS ORDERED: D50W 25 GM/50 ML SYRINGE IV PRN (10:19)
[2023-04-18] MEDS ORDERED: GLUCAGON 1 MG/VIAL IM PRN (10:19)
--- NOTE | 2023-04-18 10:25 | P.PN ---
Subjective Date of Service: 04/18/23 Subjective: No new changes, Improving Physical Examination - Vital Signs Temperature: 97.6 F Blood Pressure: 131/74 Pulse: 63 Respirations: 16 Pulse Ox (%): 98 - Physical Exam General: Alert HEENT: Atraumatic Neck: Supple Respiratory: Normal air movement Cardiovascular: Regular rate/rhythm, Normal S1 S2 Gastrointestinal: Soft and benign Musculoskeletal: No swelling Neurological: Normal speech - Studies Laboratory Data (last 24 hrs) 04/17/23 04/17/23 19:10 19:10 WBC 8.30 Hgb 13.0 L D Hct 39.1 L Plt Count 217 Sodium 131 L Potassium 3.9 BUN 16 Creatinine 1.28 Glucose 200 H Total Bilirubin 0.7 AST 507 H ALT 269 H Alkaline Phosphatase 132 H Lipase 37 Microbiology Data (last 24 hrs): 04/17/23 18:57 Nasopharnyx Influenza Type A Antigen Screen - Final 04/17/23 18:57 Nasopharnyx Influenza Type B Antigen Screen - Final Assessment And Plan - Plan Gastroenteritis: Work-up pending. [employer] Specialist consulted. Still has some episode of loose stool but C. difficile antigen is positive and C. difficile toxin is negative. Oral vancomycin recommended by gastroenterology. We will follow symptomatology closely. Continue IV hydration. History of hypertension: We will monitor vital signs per unit protocol and continue antihypertensive medications as per outpatient prescription Prophylaxis: Lovenox for DVT prophylaxis CODE STATUS: Full code Disposition: For possible discharge in next 24 hours.
[2023-04-18 10:42] LABS: C.diff Antigen/Toxin Ag pos : Tox neg (NEG : NEG)
--- NOTE | 2023-04-18 10:43 | CON ---
Date of Consultation: 04/18/2023 Reason For Consultation: Elevated liver chemistries. History Of Present Illness: Patient is a 47-year-old male with history of diabetes, hyperte nsion, obesity, status post gastric bypass surgery, and myocardial infarction in September of this year w ith cardiac stent placement. Patient presented to the hospital not feeling well, stating that he has felt lethargic, body aches, nausea, diarrhea, shortness of breath and came to the hospital because h e thought maybe his coronary artery disease was acting up again with recent UT with cardiac stent in September of this year. Patient denies sick contacts. He does drink approximately 6-pack of beer 2-3 ti mes a week it appears. He was drinking a six-pack on Wednesday and and then approximately T and Wednesday, he started having these body aches. Feels nauseated, lethargic with diarrhea and shortness of breath and has pain in his chest as well. Cardiac enzymes on admission were negative. Of note, his triglycerides were 615 on admission with a bicarb of 15, indicative of acidemia. Lacti c acid level was 3.1 on admission, which is elevated now down to 1.2 as well. Past Medical History: Significant for hypertension; diabetes; coronary artery disease, status post m yocardial infarction in September 2022 with stent placement. He had a gastric bypass surgery in 2011 at [facility] and lost 100 pounds with that surgery. He also had neck cervical fusion for unclear reasons. Medications: At home include aspirin, Lipitor , Pepcid, metoprolol, Brilinta. Allergies: NKDA. Social History: He is . One son. Occasional alcohol and tobacco. He drinks alcohol 6 pack of beer 2-3 times a week it appears. Family History: Father of myocardial infarction, nausea, congestive heart failure. Mother is a live with diabetes, hypertension, arthritis. Review of Systems: Patient has body aches, lethargy, nausea, diarrhea, shortness of breath, although acute over the past 4-5 days with some mild chest pain as well, feeling sick. coffee-grounds emesis, hematur ia, dysuria, polydipsia, hemoptysis, epistaxis, seizure, syncope. He has had some chest pain, lower extremity edema, muscle aches, joint aches, backaches. No depression, anxiety. Physical Examination: Vital Signs: Patient is 5 feet 10 inches, 240 pounds, BMI of 34.4 kg/m2. Temperature 99 degrees Fah renheit, pulse 74, respirations 16, blood pressure 117/68, O2 saturation 99%. General: He is a mildly obese male, lying in bed, in no acute distress currently. HEENT: Normocephalic, atraumatic. Anicteric. Pupils equal, round, and reactive to light. Extraocu lar movements are intact. Oropharynx is clear. Neck: Supple. No masses. Lungs: Respirations clear to auscultation bilaterally. Cardiac: Regular rate and rhythm. No gallops. Abdomen: Positive bowel sounds. Soft, nondistended. He has some mild right upper quadrant pain mayo t is mild. No peritoneal or Bazzi sign. No rebound. Extremities: No clubbing, cyanosis, or edema. 2+ pulses. Neuro: Alert and oriented x3. Grossly nonfocal. 5/5 motor strength. Sensation intact to light acacia ch. Laboratory Data: Patient has a white count of 5.8, down from 8.3 yesterday; hemoglobin of 11.6, down from 13 yesterday; hematocrit 34; MCV of 89; platelet count 196; polys of 58%; lymphocytes 22%, mono cytes 8%, eosinophils 1%. He has a PT of 10.2, INR of 0.9, PTT of 29.4. He has a sodium of 136; pot assium of 3.7; chloride 108; BUN of 12; creatinine of 1.06, yesterday was 1.28; glucose 129, down fro m 200 yesterday. Lactic acid was 3.1 yesterday, down to 1.2 overnight. Calcium 8.2; total bilirubin of 1.2, up from 0.7 yesterday. AST and ALT of 358 and 224, down from 507 and 269 yesterday. Alkali ne phosphatase normal at 117, down from elevated level of 132 yesterday. Creatine kinase of 233. Tr oponin-I of 5.3, which is negative. Total protein 6.0, albumin 2.5. Triglycerides of 615, cholester ol 106, LDL 22, HDL of 17, lipase of 37. Glucose 3+ on urinalysis, otherwise negative. Viral hepati tis panel pending. COVID-19 testing was negative. Impression: 1.Elevated liver chemistries, probably due to alcohol and/or viral infection. Patient drinks 6-pack every 2-3 days per week and he drank on Wednesday and prior to him somewhat becoming sick o n and Wednesday with body aches, nausea, lethargy, new-onset diarrhea, shortness of breath, and some chest pains feeling sick over the past few days. Of note, his AST and ALT since adm ission have decreased from 507 and 269 down to 358 and 224. Alkaline phosphatase has decreased from elevated 132 down to now 117, albumin has gone from 2.7 to 2.5, and total bilirubin has gone from 0.7 to 1.2. He does drink sodas mainly Diet Coke and Coke Zero. He also drinks some regular sodas as w ell. So, he could have some fatty liver infiltration. His CT scan did report gastric bypass changes . Liver is unremarkable looks like. 2.Change in bowel habits, diarrhea x3 days, is mild, probably a viral infection and suspect a viral gastroenteritis. 3.Elevated triglycerides. Glucose on admission was 200, definitely suspect diabetes, but in combina tion with a low bicarb of 15 and lactic acid elevated at 3.1 on admission, now down to 1.2, medicatio n related, mild DKA as well. 4.Patient has right upper quadrant pain on exam, at some point may need further investigation. That could be related to viral hepatitis. 5.History of hypertension, diabetes, coronary artery disease, myocardial infarction in September 2022 wi th stent placement, hyperlipidemia, gastric bypass surgery in 2021 in [facility] with 100-pound weight loss with that. Recommendations: 1.Check for RSV. 2.Await a viral hepatitis panel is pending. 3.Continue IV fluids. 4.Continue p.r.n. antiemetics. 5.Check stool studies. 6.Diabetes and triglyceride therapy. 7.Check hemoglobin A1c. BILL/VINH Voice ID: [id number] Report ID: [id number]
[2023-04-18] MEDS: INSULIN REGULAR (HUMAN) 100 UNIT/ML SQ SCH ×3 (11:30→21:27)
[2023-04-18] MEDS: VANCOMYCIN ORAL SOLN 250 MG/5 ML OSYR PO SCH ×3 (13:23→21:25)
[2023-04-18] MEDS ORDERED: CHOLESTYRAMINE/ASP 4 GM/PKT PO SCH (21:00)
[2023-04-19] MEDS: NA CHLORIDE 0.9% 1,000 ML IV SCH ×2 (04:39→05:00)
[2023-04-19 05:31] LABS: Hepatitis B Core IgM Nonreactive (Nonreactive); Hepatitis B surface AG Interp. Nonreactive (Nonreactive); Hepatitis C Virus Ab Nonreactive (Nonreactive)
--- NOTE | 2023-04-19 06:59 | P.PN ---
Date of Service: 04/19/23 Subjective: Physical Exam: Vitals: reviewed GEN: Alert, oriented, NAD HEENT: Normal conjunctiva, sclera anicteric CV: Regular rate & rhythm, no edema Pulm: Nonlabored respiraitons, clear bilaterally ABD: Soft, nontender, nondistended MSK: No joint tenderness Integumentary: No rashes Neuro: Normal speech, normal affect Problem List: Gastroenteritis h/o CAD s/p PCI (September 2022) Hypertension alcohol use tobacco use Plan: GI consulted loose stool continues C. difficile antigen positive and tox negative stool studies pending Continue PO vancomycin continue IV fluids confirm home medications, restart as appropriate continue home brilinta continue home metoprolol
[2023-04-19] MEDS: INSULIN REGULAR (HUMAN) 100 UNIT/ML SQ SCH ×2 (07:30→11:30)
[2023-04-19] MEDS: METOPROLOL TAR 25 MG TAB PO SCH (08:37)
[2023-04-19] MEDS: TICAGRELOR 90 MG TABLET PO SCH (08:37)
[2023-04-19] MEDS: VANCOMYCIN ORAL SOLN 250 MG/5 ML OSYR PO SCH ×2 (08:37→13:13)
[2023-04-19 10:34] VITALS: O2SAT 100
[2023-04-19 12:30] VITALS: BP 122/77; TEMP 97.3
--- NOTE | 2023-04-21 17:35 | EKG ---
Test Date: 2023-04-17 Test Time: 18:56:24 [place]l Screen Operator: RV MEASUREMENT RESULTS: Intervals: Rate: 110 MO: 144 QRSD: 68 QT: 322 QTc: 435 [place]: P: 68 MO: 144 QRS: 62 T: 28 INTERPRETIVE STATEMENTS: Sinus tachycardia Otherwise normal ECG Compared to ECG 04/16/2023 20:58:08 Sinus rhythm no longer present Electronically Signed On 04-21-23 17:26:02 RUN LEAD by Gustavo Fleming
[2023-04-21 21:05] LABS: Lactoferrin, Stool 54.2 mcg/mL (<7.25)
== END 2023-04-19 15:35 | disposition home or self-care (01) ==
LOC: ER 18:26 → ERHOLD 22:35 → 4TH 23:18
PROVIDERS: ADMIT Hospitalist; ATTEND Hospitalist
DX: R74.01 Elevation of levels of liver transaminase levels (principal); R74.02 Elevation of levels of lactic acid dehydrogenase [LDH]; R19.7 Diarrhea, unspecified; R03.0 Elevated blood-pressure reading, without diagnosis of hypertension; R06.02 Shortness of breath; R53.83 Other fatigue; E11.9 Type 2 diabetes mellitus without complications; E66.9 Obesity, unspecified; I25.2 Old myocardial infarction; E78.1 Pure hyperglyceridemia; R10.11 Right upper quadrant pain; F10.90 Alcohol use, unspecified, uncomplicated; Z95.5 Presence of coronary angioplasty implant and graft; Z79.82 Long term (current) use of aspirin; Z72.0 Tobacco use; Z98.84 Bariatric surgery status
CPT/HCPCS: 96361; 93005; 87045; 85025 ×2; 36415; 83721; 82550; 89055; 87177; 85610; 80061; 82947 ×5; 87046; 83605 ×2; 85730; 87209; 81003; 87324; 83036; 84484; 83690; 80053 ×2; 83631; 82705; 80074; 87807; 87804 ×2; 74177; 76705; 96360; 99285; 83993; 87811; Q9967; J1815; J7030 ×5; G0378